=== PATIENT | female | born 1965 | race American Indian/Alaskan Native ===

== ENCOUNTER 2016-10-29 22:47 | Emergency (ER) | payer MEDICAID, OTHER ==
[2016-10-29 22:55] VITALS: BP 140/68
[2016-10-29 23:34] LABS: CHLORIDE,CL 99 mmol/L (101-111); SODIUM,NA 138 mmol/L (135-145)
[2016-10-29] MEDS ORDERED: Insulin Regular, Human 100 Units/ML 3 ML Vial IV ONE (23:49)
--- NOTE | 2016-10-30 02:05 | EDM.PDOC ---
ED HPI GENERAL MEDICAL PROBLEM - General Chief Complaint: Chest Pain Stated Complaint: CHEST PAIN, COMING BY AMBULANCE Time Seen by Provider: 10/29/16 22:50 Source of Information: Reports: Patient, EMS History Limitations: Reports: No Limitations - History of Present Illness INITIAL COMMENTS - FREE TEXT/NARRATIVE: ED with c/o left sided chest pain worse with breathing since 2119 tonight, points epigastric and left lower chest area as location of pain. Hx diabetes with "usual BS 300-400. no fever or chills, occasional cough. previous smoker. Onset: Today Treatments SUPPORT ASSISTANT: Reports: Aspirin, EKG, IV/IO Other Treatments SUPPORT ASSISTANT: 4 baby aspirin given Left Chest Pain Score (Numeric/FACES): 4 - Related Data Allergies Allergy/AdvReac Type Severity Reaction Status Date / Time cephalexin monohydrate Allergy Rash Verified 10/29/16 23:02 [From Keflex] Home Meds: Home Meds Calcium Carbonate/Vitamin D3 [Calcium 500 + Vit D 200 Caplet] 1 tab PO BID 03/24 [History] Hydrochlorothiazide [Hydrochlorothiazide] 1 tab PO BID 03/24/14 [History] Ibuprofen [Motrin] 1 tab PO Q8H PRN 03/24/14 [History] Lisinopril [Lisinopril] 40 mg PO DAILY 03/24/14 [History] glyBURIDE [Glyburide] 2 tab PO BID 03/24/14 [History] metFORMIN [Glucophage] 1 tab PO BID 03/24/14 [History] Fluticasone Propionate [Flonase] 1 spray NS DAILY 03/26/14 [History] Insulin Detemir [Levemir] 30 unit SUBCUT BID 09/16/14 [History] Docusate Sodium [Colace] 200 mg PO BID 10/29/16 [History] Famotidine 20 mg PO BID PRN 10/29/16 [History] Insulin Aspart [Novolog] 18 unit SQ BID 10/29/16 [History] Metoprolol Tartrate 12.5 mg PO DAILY 10/29/16 [History] Psyllium Husk 1 tsp PO BID 10/29/16 [History] Sodium Chloride [Deep Sea] 44 ml NS DAILY 10/29/16 [History] atorvaSTATin Calcium [Atorvastatin Calcium] 20 mg PO QPM 10/29/16 [History] Past Medical History Cardiovascular History: Reports: Hypertension Respiratory History: Reports: Other (See Below) Other Respiratory History: scarring of left lung Gastrointestinal History: Reports: None Genitourinary History: Reports: None 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 Neurological History: Reports: None Psychiatric History: Reports: Anxiety Endocrine/Metabolic History: Reports: Diabetes, Type II Hematologic History: Reports: None Immunologic History: Reports: None Oncologic (Cancer) History: Reports: None Dermatologic History: Reports: None - Infectious Disease History Infectious Disease History: Reports: None - Past Surgical History GI Surgical History: Reports: Hernia, Abdominal Female Surgical History: Reports: Section Social & Family History - Family History Family Medical History: Noncontributory - Tobacco Use Smoking Status *Q: Former Smoker Years of Tobacco use: 30 Used Tobacco, but Quit: Yes Month Tobacco Last Used: 2013 Second Hand Smoke Exposure: No - Caffeine Use Caffeine Use: Reports: Coffee - Alcohol Use Days Per Week of Alcohol Use: 0 - Recreational Drug Use Recreational Drug Use: No - Living Situation & Occupation Living situation: Reports: with Family ED ROS GENERAL - Review of Systems Review Of Systems: See Below Constitutional: Reports: No Symptoms HEENT: Reports: No Symptoms Respiratory: Reports: Shortness of Breath (at times with activity) Cardiovascular: Reports: Chest Pain, Dyspnea on Exertion. Denies: Edema, Lightheadedness, Orthopnea Endocrine: Reports: High Glucose GI/Abdominal: Reports: No Symptoms. Denies: Distension, Vomiting Musculoskeletal: Reports: No Symptoms Skin: Reports: No Symptoms Neurological: Reports: No Symptoms ED EXAM, GENERAL - Physical Exam Exam: See Below Exam Limited By: No Limitations General Appearance: Alert, No Apparent Distress, Obese Eye Exam: Bilateral Eye: EOMI, PERRL Ears: Normal External Exam Nose: Normal Inspection Throat/Mouth: Normal Inspection Head: Atraumatic, Normocephalic Neck: Normal Inspection Respiratory/Chest: No Respiratory Distress, Crackles (fine bases clear with deep inspiration and cough). No: Wheezing Cardiovascular: Normal Peripheral Pulses, Regular Rate, Rhythm GI/Abdominal: Normal Bowel Sounds, Soft, Non-Tender Back Exam: Normal Inspection Extremities: Normal Inspection Neurological: Alert, Oriented, Normal Cognition Psychiatric: Normal Affect, Normal Mood Skin Exam: Warm, Dry, Intact, Normal Color EKG INTERPRETATION Rhythm: NSR Course - Vital Signs Last Recorded V/S: Last Vital Signs Temp 97.8 F 10/29/16 22:47 Pulse 98 10/29/16 22:47 Resp 24 H 10/29/16 22:47 BP 140/68 10/29/16 22:47 Pulse Ox 92 L 10/29/16 22:47 - Orders/Labs/Meds Labs: Laboratory Tests 10/29/16 10/29/16 10/29/16 Range/Units 23:08 23:08 23:08 WBC 11.8 H (5.0-10.0) 10^3/uL RBC 4.71 (4.2-5.4) 10^6/uL Hgb 13.1 (12.0-16.0) g/dL Hct 40.2 (37.0-47.0) % MCV 85.4 (80-100) fL MCH 27.8 (27.0-34.0) pg MCHC 32.6 L (33.0-35.0) g/dL Plt Count 286 (150-450) 10^3/uL Neut % (Auto) 53.9 (42.2-75.2) % Lymph % (Auto) 30.3 (20.5-50.1) % [place] % (Auto) 8.6 H (2-8) % Eos % (Auto) 6.7 H (1.0-3.0) % Baso % (Auto) 0.5 (0.0-1.0) % D-Dimer, Quantitative < 100 (0-400) ng/mL Sodium 138 (135-145) mmol/L Potassium 4.7 (3.6-5.0) mmol/L Chloride 99 L (101-111) mmol/L Carbon Dioxide 29.0 (21.0-31.0) mmol/L Anion Gap 14.7 BUN 15 (7-18) mg/dL Creatinine 0.8 (0.6-1.3) mg/dL Est Cr Clr Drug Dosing 77.88 mL/min Estimated GFR (MDRD) > 60 BUN/Creatinine Ratio 18.75 Glucose 457 H* (74-105) mg/dL POC Glucose (70-105) mg/dl Lactic Acid (0.5-2.2) mmol/L Calcium 9.5 (8.4-10.2) mg/dl Total Bilirubin 0.8 (0.2-1.0) mg/dL AST 22 (10-42) IU/L ALT 20 (10-60) IU/L Alkaline Phosphatase 113 (42-121) IU/L CK-MB (CK-2) (0.4-4.7) ng/mL Troponin I < 0.02 (0.00-0.02) ng/ml Total Protein 7.3 (6.7-8.2) g/dl Albumin 3.7 (3.2-5.5) g/dl Globulin 3.6 Albumin/Globulin Ratio 1.03 Amylase 39 (28-100) U/L Lipase 41 (22-51) U/L Ketones Negative 10/29/16 10/29/16 10/30/16 Range/Units 23:08 23:25 00:56 WBC (5.0-10.0) 10^3/uL RBC (4.2-5.4) 10^6/uL Hgb (12.0-16.0) g/dL Hct (37.0-47.0) % MCV (80-100) fL MCH (27.0-34.0) pg MCHC (33.0-35.0) g/dL Plt Count (150-450) 10^3/uL Neut % (Auto) (42.2-75.2) % Lymph % (Auto) (20.5-50.1) % [place] % (Auto) (2-8) % Eos % (Auto) (1.0-3.0) % Baso % (Auto) (0.0-1.0) % D-Dimer, Quantitative (0-400) ng/mL Sodium (135-145) mmol/L Potassium (3.6-5.0) mmol/L Chloride (101-111) mmol/L Carbon Dioxide (21.0-31.0) mmol/L Anion Gap BUN (7-18) mg/dL Creatinine (0.6-1.3) mg/dL Est Cr Clr Drug Dosing mL/min Estimated GFR (MDRD) BUN/Creatinine Ratio Glucose (74-105) mg/dL POC Glucose 398 H (70-105) mg/dl Lactic Acid 2.2 (0.5-2.2) mmol/L Calcium (8.4-10.2) mg/dl Total Bilirubin (0.2-1.0) mg/dL AST (10-42) IU/L ALT (10-60) IU/L Alkaline Phosphatase (42-121) IU/L CK-MB (CK-2) 0.70 (0.4-4.7) ng/mL Troponin I (0.00-0.02) ng/ml Total Protein (6.7-8.2) g/dl Albumin (3.2-5.5) g/dl Globulin Albumin/Globulin Ratio Amylase (28-100) U/L Lipase (22-51) U/L Ketones Meds: Medications Discontinued Medications Generic Name Dose Route Start Last Admin Trade Name Freq PRN Reason Stop Dose Admin Insulin Human Regular 5 unit 10/29/16 23:49 10/30/16 00:24 Humulin R IV 10/29/16 23:50 5 units ONETIME ONE Administration Protocol - Radiology Interpretation Free Text/Narrative:: CXR negative - Re-Assessments/Exams Free Text/Narrative Re-Assessment/Exam: Pain resolved Breathing improved. Departure - Departure Time of Disposition: 01:59 Disposition: Home, Self-Care 01 Condition: Fair Clinical Impression: Non-cardiac chest pain, Hyperglycemia Instructions: Nonspecific Chest Pain, [id number] Referrals: PCP,Unobtain [Primary Care Provider] - Forms: ED Department Discharge Additional Instructions: follow up with primary care regarding elevated blood sugars urgent follow up if chest pain, nausea or radiation of chest pain
--- NOTE | 2016-10-30 17:26 | EKG ---
10/29/2016 - VIVIAN MENDEZ - EKG from 10/29/2016 per my reading shows sinus rhythm at the rate of 93, with no acute ST changes. [facility] /[id number]
== END 2016-10-30 02:10 | disposition home or self-care (01) ==
LOC: DL.ED 22:47
DX: R07.89 Other chest pain (principal); E11.65 Type 2 diabetes mellitus with hyperglycemia; I10 Essential (primary) hypertension; F41.9 Anxiety disorder, unspecified; Z98.890 Other specified postprocedural states; Z87.891 Personal history of nicotine dependence; Z79.4 Long term (current) use of insulin; Z79.899 Other long term (current) drug therapy; Z88.1 Allergy status to other antibiotic agents
CPT/HCPCS: 36415; 71010; 80053; 82009; 82150; 82553; 82962; 83605; 83690; 84484; 85025; 85379; 93005; 96374; 99285; J1815

== ENCOUNTER 2017-04-21 18:46 | Emergency (ER) | payer MEDICAID, OTHER ==
[2017-04-21 19:26] LABS: ANION GAP 14.1; CHLORIDE,CL 97 mmol/L (101-111); SODIUM,NA 131 mmol/L (135-145)
[2017-04-21 21:09] VITALS: BP 135/115
[2017-04-21] MEDS ORDERED: methylPREDNISolone Sodium Succinate 125 MG/2 ML SDV IM ONE (21:09)
[2017-04-21] MEDS ORDERED: Albuterol/Ipratropium 3.0-0.5 MG/3 ML Neb Soln NEB ONE (21:09)
[2017-04-21] MEDS ORDERED: Codeine/Promethazine 10-6.25 MG/5 ML Syrup 5 ML UD Cup PO ONE (21:11)
[2017-04-21] MEDS ORDERED: Azithromycin 250 MG Tab PO ONE (21:11)
--- NOTE | 2017-04-21 21:17 | EDM.PDOC ---
ED HPI GENERAL MEDICAL PROBLEM - General Chief Complaint: Chest Pain Stated Complaint: CHEST PAIN [id number] Time Seen by Provider: 04/21/17 21:13 Source of Information: Reports: Patient History Limitations: Reports: No Limitations - History of Present Illness INITIAL COMMENTS - FREE TEXT/NARRATIVE: c/o chest congestion cough and now pain Left Anterior Chest Pain Score (Numeric/FACES): 6 - Related Data Allergies Allergy/AdvReac Type Severity Reaction Status Date / Time cephalexin monohydrate Allergy Rash Verified 04/21/17 19:04 [From [employer]] Home Meds: Home Meds Calcium Carbonate/Vitamin D3 [Calcium 500 + Vit D 200 Caplet] 1 tab PO BID 03/24 [History] Hydrochlorothiazide [Hydrochlorothiazide] 1 tab PO BID 03/24/14 [History] Ibuprofen [Motrin] 1 tab PO Q8H PRN 03/24/14 [History] Lisinopril [Lisinopril] 40 mg PO DAILY 03/24/14 [History] glyBURIDE [Glyburide] 2 tab PO BID 03/24/14 [History] metFORMIN [Glucophage] 1 tab PO BID 03/24/14 [History] Fluticasone Propionate [Flonase] 1 spray NS DAILY 03/26/14 [History] Insulin Detemir [Levemir] 30 unit SUBCUT BID 09/16/14 [History] Docusate Sodium [Colace] 200 mg PO BID 10/29/16 [History] Famotidine 20 mg PO BID PRN 10/29/16 [History] Insulin Aspart [Novolog] 18 unit SQ BID 10/29/16 [History] Metoprolol Tartrate 12.5 mg PO DAILY 10/29/16 [History] Psyllium Husk 1 tsp PO BID 10/29/16 [History] Sodium Chloride [Deep Sea] 44 ml NS DAILY 10/29/16 [History] atorvaSTATin Calcium [Atorvastatin Calcium] 20 mg PO QPM 10/29/16 [History] Past Medical History Cardiovascular History: Reports: Hypertension Respiratory History: Reports: Other (See Below) Other Respiratory History: scarring of left lung Gastrointestinal History: Reports: None Genitourinary History: Reports: None 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 Neurological History: Reports: None Psychiatric History: Reports: Anxiety Endocrine/Metabolic History: Reports: Diabetes, Type II Hematologic History: Reports: None Immunologic History: Reports: None Oncologic (Cancer) History: Reports: None Dermatologic History: Reports: None - Infectious Disease History Infectious Disease History: Reports: None - Past Surgical History GI Surgical History: Reports: Hernia, Abdominal Female Surgical History: Reports: Section Social & Family History - Family History Family Medical History: Noncontributory - Tobacco Use Smoking Status *Q: Former Smoker Years of Tobacco use: 30 Used Tobacco, but Quit: No Month Tobacco Last Used: 2013 Second Hand Smoke Exposure: No - Caffeine Use Caffeine Use: Reports: Soda - Alcohol Use Days Per Week of Alcohol Use: 0 - Recreational Drug Use Recreational Drug Use: No - Living Situation & Occupation Living situation: Reports: with Family ED ROS GENERAL - Review of Systems Review Of Systems: ROS reveals no pertinent complaints other than HPI. ED EXAM, GENERAL - Physical Exam Exam: See Below Exam Limited By: No Limitations General Appearance: Alert, WD/WN, Mild Distress, Moderate Distress, Other ( episodic cough spasms) Ears: Hearing Grossly Normal Throat/Mouth: Normal Voice, No Airway Compromise Head: Atraumatic Neck: Non-Tender, Full Range of Motion Respiratory/Chest: No Respiratory Distress, No Accessory Muscle Use, Rales, Rhonchi, Wheezing. No: Decreased Breath Sounds, Retractions Cardiovascular: Regular Rate, Rhythm GI/Abdominal: Soft, Non-Tender Neurological: Alert, Oriented, Normal Cognition, Normal Gait, No Motor/Sensory Deficits Psychiatric: Flat Affect Skin Exam: Warm, Dry, Normal Color Lymphatic: No Adenopathy Course - Vital Signs Last Recorded V/S: Last Vital Signs Temp 36.6 C 04/21/17 21:09 Pulse 106 H 04/21/17 21:45 Resp 18 04/21/17 21:45 BP 135/115 H 04/21/17 21:09 Pulse Ox 96 04/21/17 21:45 - Orders/Labs/Meds Orders: Active Orders 24 hr Category Date Time Status EKG Documentation Completion [RC] STAT Care 04/21/17 18:53 Active RT Aerosol Therapy [RC] ASDIRECTED Care 04/21/17 21:09 Active Labs: Laboratory Tests 04/21/17 04/21/17 Range/Units 18:55 18:55 WBC 9.6 (5.0-10.0) 10^3/uL RBC 5.07 (4.2-5.4) 10^6/uL Hgb 13.9 (12.0-16.0) g/dL Hct 42.2 (37.0-47.0) % MCV 83.2 (80-100) fL MCH 27.4 (27.0-34.0) pg MCHC 32.9 L (33.0-35.0) g/dL Plt Count 328 (150-450) 10^3/uL Neut % (Auto) 47.7 (42.2-75.2) % Lymph % (Auto) 38.9 (20.5-50.1) % [place] % (Auto) 8.4 H (2-8) % Eos % (Auto) 4.6 H (1.0-3.0) % Baso % (Auto) 0.4 (0.0-1.0) % Sodium 131 L (135-145) mmol/L Potassium 4.1 (3.6-5.0) mmol/L Chloride 97 L (101-111) mmol/L Carbon Dioxide 24.0 (21.0-31.0) mmol/L Anion Gap 14.1 BUN 18 (7-18) mg/dL Creatinine 0.6 (0.6-1.3) mg/dL Est Cr Clr Drug Dosing 105.86 mL/min Estimated GFR (MDRD) > 60 BUN/Creatinine Ratio 30.00 Glucose 305 H (74-105) mg/dL Calcium 9.1 (8.4-10.2) mg/dl Total Bilirubin 1.1 H (0.2-1.0) mg/dL AST 30 (10-42) IU/L ALT 32 (10-60) IU/L Alkaline Phosphatase 86 (42-121) IU/L Troponin I < 0.02 (0.00-0.02) ng/ml Total Protein 7.5 (6.7-8.2) g/dl Albumin 3.8 (3.2-5.5) g/dl Globulin 3.7 Albumin/Globulin Ratio 1.03 Meds: Medications Discontinued Medications Generic Name Dose Route Start Last Admin Trade Name Freq PRN Reason Stop Dose Admin Albuterol/Ipratropium 3 ml 04/21/17 21:09 04/21/17 21:12 Duoneb 3.0-0.5 Mg/3 Ml NEB 04/21/17 21:10 3 ml ONETIME ONE Administration Azithromycin 250 mg 04/21/17 21:11 04/21/17 21:22 Zithromax PO 04/21/17 21:12 250 mg ONETIME ONE Administration Methylprednisolone Sodium Succinate 125 mg 04/21/17 21:09 04/21/17 21:21 Solu-Medrol IM 04/21/17 21:10 125 mg ONETIME ONE Administration Promethazine HCl/Codeine 5 ml 04/21/17 21:11 04/21/17 21:22 Phenergan With Codeine PO 04/21/17 21:12 5 ml ONETIME ONE Administration - Re-Assessments/Exams Free Text/Narrative Re-Assessment/Exam: 04/21/17 21:15 results discussed with pt who is feeling better s/p Rx's + duoneb Departure - Departure Time of Disposition: 21:40 Disposition: Home, Self-Care 01 Condition: Good Clinical Impression: Bronchospasm with bronchitis, acute - Discharge Information Instructions: Nonspecific Chest Pain, [id number] Forms: ED Department Discharge Additional Instructions: 1) don't sleep flat at night 2) drink lots of liquids 3) use neb 3 times daily for cough 4) follow up at clinic rx given; z-julio medrol dospak albuterol 2.5 mg solution tid prn phenergan codeine syrup qid prn x 4oz - My Orders Last 24 Hours: My Active Orders 04/21/17 18:53 EKG Documentation Completion [RC] STAT 04/21/17 21:09 RT Aerosol Therapy [RC] ASDIRECTED - Assessment/Plan Last 24 Hours: My Active Orders 04/21/17 18:53 EKG Documentation Completion [RC] STAT 04/21/17 21:09 RT Aerosol Therapy [RC] ASDIRECTED
--- NOTE | 2017-04-23 14:34 | EKG ---
04/21/2017- VIVIAN MENDEZ - FINDINGS: EKG, per my reading, shows sinus tachycardia. [facility] /[id number]
== END 2017-04-21 21:44 | disposition home or self-care (01) ==
LOC: DL.ED 18:46
DX: J20.9 Acute bronchitis, unspecified (principal); I10 Essential (primary) hypertension; Z87.891 Personal history of nicotine dependence; Z79.4 Long term (current) use of insulin; Z79.899 Other long term (current) drug therapy; Z88.1 Allergy status to other antibiotic agents
CPT/HCPCS: 36415; 71046; 80053; 84484; 85025; 93005; 94640; 96372; 99285; A9270; J2930

== ENCOUNTER 2017-05-06 13:10 | Emergency (ER) | payer MEDICAID, OTHER ==
--- NOTE | 2017-05-06 13:35 | EDM.PDOC ---
ED HPI GENERAL MEDICAL PROBLEM - General Chief Complaint: Gastrointestinal Problem Stated Complaint: CONSTIPATION Time Seen by Provider: 05/06/17 13:35 Source of Information: Reports: Patient, Old Records, RN, RN Notes Reviewed History Limitations: Reports: No Limitations - History of Present Illness INITIAL COMMENTS - FREE TEXT/NARRATIVE: Pt c/o constipation with no BM for the last 4 days. Pt states she has strained and tried to go and had only a very small amount of very hard stool with a small amount of bright red blood. Admits to mild abdominal cramping but no significant pain. Admits to nausea without vomiting. Onset: Gradual Duration: Day(s): (4) Location: Reports: Abdomen Quality: Reports: Other (cramps) Severity: Mild Improves with: Reports: None Worsens with: Reports: None Associated Symptoms: Reports: No Other Symptoms Sacral Pain Score (Numeric/FACES): 6 - Related Data Allergies Allergy/AdvReac Type Severity Reaction Status Date / Time cephalexin monohydrate Allergy Rash Verified 05/06/17 13:25 [From Keflex] Home Meds: Home Meds Calcium Carbonate/Vitamin D3 [Calcium 500 + Vit D 200 Caplet] 1 tab PO BID 03/24 [History] Hydrochlorothiazide [Hydrochlorothiazide] 1 tab PO BID 03/24/14 [History] Ibuprofen [Motrin] 1 tab PO Q8H PRN 03/24/14 [History] Lisinopril [Lisinopril] 40 mg PO DAILY 03/24/14 [History] glyBURIDE [Glyburide] 2 tab PO BID 03/24/14 [History] metFORMIN [Glucophage] 1 tab PO BID 03/24/14 [History] Fluticasone Propionate [Flonase] 1 spray NS DAILY 03/26/14 [History] Insulin Detemir [Levemir] 30 unit SUBCUT BID 09/16/14 [History] Docusate Sodium [Colace] 200 mg PO BID 10/29/16 [History] Famotidine 20 mg PO BID PRN 10/29/16 [History] Insulin Aspart [Novolog] 18 unit SQ BID 10/29/16 [History] Metoprolol Tartrate 12.5 mg PO DAILY 10/29/16 [History] Psyllium Husk 1 tsp PO BID 10/29/16 [History] atorvaSTATin Calcium [Atorvastatin Calcium] 20 mg PO QPM 10/29/16 [History] Past Medical History HEENT History: Reports: Sinusitis Cardiovascular History: Reports: Hypertension Respiratory History: Reports: Other (See Below) Other Respiratory History: scarring of left lung Gastrointestinal History: Reports: None Genitourinary History: Reports: None 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 Musculoskeletal History: Reports: None Neurological History: Reports: None Psychiatric History: Reports: Anxiety Endocrine/Metabolic History: Reports: Diabetes, Type II Hematologic History: Reports: None Immunologic History: Reports: None Oncologic (Cancer) History: Reports: None Dermatologic History: Reports: None - Infectious Disease History Infectious Disease History: Reports: None - Past Surgical History Head Surgeries/Procedures: Reports: None GI Surgical History: Reports: Hernia, Abdominal Female Surgical History: Reports: Section Social & Family History - Family History Family Medical History: Noncontributory - Tobacco Use Smoking Status *Q: Former Smoker Years of Tobacco use: 30 Used Tobacco, but Quit: No Month Tobacco Last Used: 2013 Second Hand Smoke Exposure: No - Caffeine Use Caffeine Use: Reports: Soda - Alcohol Use Days Per Week of Alcohol Use: 0 - Recreational Drug Use Recreational Drug Use: No - Living Situation & Occupation Living situation: Reports: with Family ED ROS GENERAL - Review of Systems Review Of Systems: ROS reveals no pertinent complaints other than HPI. ED EXAM, GI/ABD - Physical Exam Exam: See Below Exam Limited By: No Limitations General Appearance: Alert, WD/WN, No Apparent Distress, Obese Respiratory/Chest: No Respiratory Distress GI/Abdominal Exam: Normal Bowel Sounds, Soft, Non-Tender, No Distention, No Abnormal Bruit, Pelvis Stable, Other (benign obese abdomen) (Female) Exam: Deferred Rectal (Female) Exam: Deferred Back Exam: Normal Inspection. No: CVA Tenderness (L), CVA Tenderness (R) Extremities: Normal Inspection, Non-Tender Neurological: Alert, Oriented, Normal Cognition, No Motor/Sensory Deficits Psychiatric: Normal Mood Skin Exam: Warm, Dry, Intact, Normal Color, No Rash Course - Vital Signs Last Recorded V/S: Last Vital Signs Temp 36.6 C 05/06/17 14:47 Pulse 81 05/06/17 14:47 Resp 20 05/06/17 14:47 BP 130/73 05/06/17 14:47 Pulse Ox 97 05/06/17 14:47 - Orders/Labs/Meds Orders: Active Orders 24 hr Category Date Time Status Enema [RC] ASDIRECTED Care 05/06/17 14:22 Active UA W/MICROSCOPIC [URIN] Stat Lab 05/06/17 13:47 Uncollected Meds: Medications Discontinued Medications Generic Name Dose Route Start Last Admin Trade Name Km PRN Reason Stop Dose Admin Bisacodyl 10 mg 05/06/17 14:23 05/06/17 15:37 Dulcolax PO 05/06/17 14:24 10 mg ONETIME ONE Administration Lactulose 20 gm 05/06/17 14:23 05/06/17 15:37 Cephulac PO 05/06/17 14:24 20 gm ONETIME ONE Administration - Radiology Interpretation Free Text/Narrative:: Abdominal Xray: constipation, see Rad. report. Departure - Departure Time of Disposition: 16:09 Disposition: Home, Self-Care 01 Condition: Good Clinical Impression: Constipation Qualifiers: Constipation type: unspecified constipation type Qualified Code(s): K59.00 - Constipation, unspecified - Discharge Information Instructions: Constipation, Adult, [id number], High-Fiber Diet Forms: ED Department Discharge Additional Instructions: Drink plenty of water and/or prune juice. Follow up in clinic for recheck if not completely improved in 1 to 2 days. - My Orders Last 24 Hours: My Active Orders 05/06/17 13:47 UA W/MICROSCOPIC [URIN] Stat 05/06/17 14:22 Enema [RC] ASDIRECTED - Assessment/Plan Last 24 Hours: My Active Orders 05/06/17 13:47 UA W/MICROSCOPIC [URIN] Stat 05/06/17 14:22 Enema [RC] ASDIRECTED
--- NOTE | 2017-05-06 14:10 | CR ---
Clinical history: 51-year-old 295 pound female "constipation" and abdominal pain. Interpretation: Supine abdominal exam (3 films) confirms stool in the rectal vault and large abdomina l soft tissue pannus. Otherwise unremarkable. No sign of foreign body, abdominal soft tissue mass, pathologic calcifications or mechanical bowel ob struction. Lung bases clear.
[2017-05-06] MEDS ORDERED: Bisacodyl 5 MG Tab PO ONE (14:23)
[2017-05-06] MEDS ORDERED: Lactulose Soln 10 GM/15 ML 30 ML UD Cup PO ONE (14:23)
[2017-05-06 15:54] VITALS: BP 130/73
== END 2017-05-06 16:33 | disposition home or self-care (01) ==
LOC: DL.ED 13:10
DX: K59.00 Constipation, unspecified (principal); I10 Essential (primary) hypertension; E11.9 Type 2 diabetes mellitus without complications; Z88.1 Allergy status to other antibiotic agents; Z79.4 Long term (current) use of insulin; Z79.899 Other long term (current) drug therapy; Z87.891 Personal history of nicotine dependence
CPT/HCPCS: 74021; 81001; 99284; A9270

== ENCOUNTER 2017-05-16 05:46 | Day surgery (SDC) | payer MEDICAID, OTHER ==
[2017-05-16] MEDS ORDERED: fentaNYL 100 MCG/2 ML SDV IV ONE (05:47)
[2017-05-16] MEDS ORDERED: Midazolam 1 MG/ML 2 ML SDV IV ONE (05:47)
[2017-05-16] MEDS ORDERED: Sodium Chloride 0.9% 10 ML Syringe FLUSH PRN (06:00)
[2017-05-16] MEDS: Dextrose 5%-0.45% NaCl 1,000 ML IV SCH (06:13)
[2017-05-16] MEDS ORDERED: fentaNYL 100 MCG/2 ML SDV ONE (06:15)
[2017-05-16] MEDS ORDERED: Midazolam 1 MG/ML 2 ML SDV ONE (06:15)
[2017-05-16] MEDS: fentaNYL 100 MCG/2 ML SDV IV ONE ×2 (06:34→06:35)
[2017-05-16] MEDS: Midazolam 1 MG/ML 2 ML SDV IV ONE ×4 (06:35→06:46)
--- NOTE | 2017-05-16 08:16 | OR ---
DATE: 05/16/2017 PROCEDURE DONE: Total colonoscopy. INSTRUMENT USED: CF-H180AL Olympus video colonoscope. PREMEDICATIONS: Fentanyl 100 mcg intravenous, Versed 3 mg intravenous. Nasal O2 cannula. The procedure was done under pulse oximetry, BP recording, and data conversion operator. INDICATION: The patient with progressive constipation and rectal bleeding, unexplained, and not responsive to medical measures. Colonoscopic examination is done for detection of any polypoid lesions and removal, endoscopic hemostasis therapy if needed. DESCRIPTION OF PROCEDURE: Initial rectal exam showed external hemorrhoidal tags. Rigid anoscopy showed small internal hemorrhoids without bleeding from them. The colonoscope was passed with ease. Scattered diverticula were noted, more so in the distal left colon. The colon was found to be tortuous and redundant. The exam was a bit prolonged. The scope was passed with relative ease up to the ileocecal area, photographs were taken of the normal-appearing cecum identified by landmarks of appendiceal orifice and double-bulged ileocecal folds. No bleeding was noted from any of the visualized areas at the commencement of the examination. No stricture. No vascular ectasia. No large isolated ulcerations seen. No evidence of diffuse inflammatory bowel disease in the form of friability, contact bleeding, or ulcerations. No polyp or tumor mass identified. Probing the proximal sides of folds and flexures, using adequate distention and clearing up the stool material withdrawal of the scope was made, cecum to rectum time over 6 minutes. No bleeding was noted from any of the visualized areas at the completion of examination. IMPRESSION: 1. External and internal hemorrhoids. 2. Diverticulosis. The patient tolerated the procedure well. [facility] /[id number]
--- NOTE | 2017-05-16 09:00 | PN ---
DATE: 05/16/2017 SUBJECTIVE: Gayla Colby had chest muscle spasm kind of pain earlier in the morning that just lasted for a few seconds. Entirely asymptomatic now, did not have any associated shortness of breath. No radiation of discomfort to any area. Has had similar difficulties on and off in the past and had evaluation done in the ER recently including cardiogram as well as troponin levels. No acute changes noted. OBJECTIVE: Vital Signs: Stable. General: Anxious. Appears not to be in distress. Respiratory: Not short of breath at rest. Lungs: Clear. Heart: S1 and S2 regular. Abdomen: Obese, soft. No areas of tenderness elicited. PLAN: Chart reviewed. Recent ER visit as well as details of studies done were reviewed. We will proceed with colonoscopy as scheduled. The patient is acceptable. [facility] /[id number]
[2017-05-16 09:36] VITALS: BP 127/68
--- NOTE | 2017-05-16 09:49 | LETTER ---
05/16/2017 BRUNO [facility] [address] [place] [address] RE: GAYLA MENDEZ : 1965 Dear Angela: Ms. Gayla Mendez had colonoscopic examination done this morning and she tolerated the procedure well. I herewith send a copy of the endoscopy note and photographs for your review. Colace is discontinued and she is put on Citrucel 1 tablespoonful p.o. daily and MiraLax 17 g p.o. twice a week p.r.n., response to be noted. Thank you. Sincerely, [facility] /[id number]
== END 2017-05-16 09:05 | disposition home or self-care (01) ==
LOC: DL.ENDO 05:46
PROVIDERS: ATTEND Internal Medicine Gastroenterology
DX: K64.8 Other hemorrhoids (principal); K64.4 Residual hemorrhoidal skin tags; K57.30 Diverticulosis of large intestine without perforation or abscess without bleeding; E66.01 Morbid (severe) obesity due to excess calories; E11.9 Type 2 diabetes mellitus without complications; I10 Essential (primary) hypertension; E78.5 Hyperlipidemia, unspecified; G47.33 Obstructive sleep apnea (adult) (pediatric); F32.9 Major depressive disorder, single episode, unspecified; Z88.1 Allergy status to other antibiotic agents
CPT/HCPCS: 45378; J2250; J3010; J7042

== ENCOUNTER 2017-07-06 06:16 | Emergency (ER) | payer MEDICAID, OTHER ==
--- NOTE | 2017-07-06 06:48 | EDM.PDOC ---
<Ayesha Sanchez - Last Filed: 07/06/17 06:43> ED HPI GENERAL MEDICAL PROBLEM - General Chief Complaint: Gastrointestinal Problem Stated Complaint: CONSTIPATED, PAINS IN CHEST [id number] Time Seen by Provider: 07/06/17 06:38 Source of Information: Reports: Patient, RN, RN Notes Reviewed History Limitations: Reports: No Limitations - History of Present Illness INITIAL COMMENTS - FREE TEXT/NARRATIVE: Pt presents to the ER with c/o constipation and cough. Patient states she last had a BM on Saturday and this was difficult. She states she was started on Miralax but took only one dose. Patient states that she has also had a cough for about 2 weeks. She states she was started on a new nebulizer, but it doesn' t seem to be helping. Patient states she did not have a chest xray, as the xray machine was not working at the clinic. Onset: Gradual Treatments COLOR BLENDER: Reports: Other Medication(s) Lower Abdomen Pain Score (Numeric/FACES): 7 - Related Data Allergies Allergy/AdvReac Type Severity Reaction Status Date / Time cephalexin monohydrate Allergy Rash Verified 07/06/17 06:22 [From Keflex] Home Meds: Home Meds Calcium Carbonate/Vitamin D3 [Calcium 500 + Vit D 200 Caplet] 1 tab PO BID 03/24 [History] Hydrochlorothiazide 1 tab PO BID 03/24/14 [History] Ibuprofen [Motrin] 1 tab PO Q8H PRN 03/24/14 [History] Lisinopril 40 mg PO DAILY 03/24/14 [History] glyBURIDE [Glyburide] 2 tab PO BID 03/24/14 [History] metFORMIN [Glucophage] 1 tab PO BID 03/24/14 [History] Fluticasone Propionate [Flonase] 1 spray NS DAILY PRN 03/26/14 [History] Insulin Detemir [Levemir] 30 unit SUBCUT BID 09/16/14 [History] Docusate Sodium [Colace] 200 mg PO BID 10/29/16 [History] Famotidine 20 mg PO BID PRN 10/29/16 [History] Insulin Aspart [Novolog] 16 unit SQ BID 10/29/16 [History] Metoprolol Tartrate 12.5 mg PO DAILY 10/29/16 [History] Psyllium Husk 1 tsp PO BID 10/29/16 [History] atorvaSTATin Calcium [Atorvastatin Calcium] 20 mg PO QPM 10/29/16 [History] Albuterol Sulfate 1 vial NEB ASDIRECTED PRN 05/14/17 [History] Calcium Carb/Magnesium Cmb #10 [Juvencio-Mag] 1 tab PO BID 05/14/17 [History] Fenofibric Acid (Choline) [Fenofibric Acid] 45 mg PO DAILY 05/14/17 [History] Sennosides/Docusate Sodium [Senna S Tablet] 2 tab PO BID 05/14/17 [History] Sodium Chloride [Saline Nasal [place]] 1 spray NASBOTH ASDIRECTED PRN 05/14/17 [ History] Past Medical History HEENT History: Reports: Cataract, Impaired Vision, Sinusitis Other HEENT History: WEARS CORRECTIVE LENS Cardiovascular History: Reports: High Cholesterol, Hypertension Respiratory History: Reports: Sleep Apnea, Other (See Below) Other Respiratory History: scarring of left lung Gastrointestinal History: Reports: Chronic Constipation Genitourinary History: Reports: Urinary Incontinence, Other (See Below) Other Genitourinary History: CONSTANT LOW BACK PAIN IN AREA OF [employer] History: Reports: , Spontaneous Musculoskeletal History: Reports: Arthritis, Back Pain, Chronic Neurological History: Reports: Concussion, Neuropathy, Peripheral, TIA Psychiatric History: Reports: Anxiety Endocrine/Metabolic History: Reports: Diabetes, Type II, Obesity/BMI 30+ Hematologic History: Reports: Blood Transfusion(s) Immunologic History: Reports: None Oncologic (Cancer) History: Reports: None Dermatologic History: Reports: None - Infectious Disease History Infectious Disease History: Reports: None - Past Surgical History Head Surgeries/Procedures: Reports: None HEENT Surgical History: Reports: None Cardiovascular Surgical History: Reports: None Respiratory Surgical History: Reports: None GI Surgical History: Reports: Cholecystectomy, Colonoscopy, EGD, Hernia, Abdominal Female Surgical History: Reports: Section Endocrine Surgical History: Reports: None Neurological Surgical History: Reports: None Musculoskeletal Surgical History: Reports: None Oncologic Surgical History: Reports: None Dermatological Surgical History: Reports: None Social & Family History - Family History Family Medical History: Noncontributory - Tobacco Use Smoking Status *Q: Unknown Ever Smoked Years of Tobacco use: 30 Used Tobacco, but Quit: No Month/Year Tobacco Last Used: 2013 Second Hand Smoke Exposure: No - Caffeine Use Caffeine Use: Reports: Coffee Other Caffeine Use: 1-2 CUPS OF COFFEE DAILY - Alcohol Use Days Per Week of Alcohol Use: 0 - Recreational Drug Use Recreational Drug Use: No Drug Use in Last 12 Months: No - Living Situation & Occupation Living situation: Reports: with Family ED ROS GENERAL - Review of Systems Review Of Systems: ROS reveals no pertinent complaints other than HPI. ED EXAM, GI/ABD - Physical Exam Exam: See Below Exam Limited By: No Limitations General Appearance: Alert, WD/WN, No Apparent Distress Eyes: Bilateral: Normal Appearance, EOMI Ears: Normal External Exam, Hearing Grossly Normal Nose: Normal Inspection Throat/Mouth: Normal Inspection, Normal Voice, No Airway Compromise Head: Atraumatic, Normocephalic Neck: Normal Inspection, Supple, Non-Tender, Full Range of Motion Respiratory/Chest: Decreased Breath Sounds, Crackles (throughout), Wheezing ( expiratory) Cardiovascular: Normal Peripheral Pulses, Regular Rate, Rhythm, No Edema, No Gallop, No JVD, No Murmur, No Rub GI/Abdominal Exam: Normal Bowel Sounds, Soft, No Organomegaly, No Abnormal Bruit , No Mass, Pelvis Stable, Tender (Female) Exam: Deferred Rectal (Female) Exam: Deferred Back Exam: Normal Inspection, Full Range of Motion, NT Extremities: Normal Inspection, Normal Range of Motion, Non-Tender, Normal Capillary Refill, No Pedal Edema Neurological: Alert, Oriented, CN II-XII Intact, Normal Cognition, Normal Gait, Normal Reflexes, No Motor/Sensory Deficits Psychiatric: Normal Affect, Normal Mood Skin Exam: Warm, Dry, Intact, Normal Color, No Rash Lymphatic: No Adenopathy Course - Vital Signs Last Recorded V/S: Last Vital Signs Temp 36.7 C 07/06/17 06:29 Pulse 75 07/06/17 07:40 Resp 20 07/06/17 06:29 BP 132/69 07/06/17 06:29 Pulse Ox 95 07/06/17 06:29 - Orders/Labs/Meds Orders: Active Orders 24 hr Category Date Time Status Enema [RC] ASDIRECTED Care 07/06/17 07:47 Active RT Aerosol Therapy [RC] ASDIRECTED Care 07/06/17 07:40 Active Abdomen 2V AP Flat Upright [CR] Urgent Exams 07/06/17 06:42 Taken Chest 2V [CR] Urgent Exams 07/06/17 06:42 Taken Labs: Laboratory Tests 07/06/17 07/06/17 Range/Units 06:52 06:52 WBC 16.1 H (5.0-10.0) 10^3/uL RBC 4.51 (4.2-5.4) 10^6/uL Hgb 12.5 (12.0-16.0) g/dL Hct 38.7 (37.0-47.0) % MCV 85.8 (80-100) fL MCH 27.7 (27.0-34.0) pg MCHC 32.3 L (33.0-35.0) g/dL Plt Count 339 (150-450) 10^3/uL Neut % (Auto) 60.8 (42.2-75.2) % Lymph % (Auto) 31.7 (20.5-50.1) % [place] % (Auto) 6.0 (2-8) % Eos % (Auto) 1.1 (1.0-3.0) % Baso % (Auto) 0.4 (0.0-1.0) % Sodium 135 (135-145) mmol/L Potassium 3.5 L (3.6-5.0) mmol/L Chloride 98 L (101-111) mmol/L Carbon Dioxide 28.0 (21.0-31.0) mmol/L Anion Gap 12.5 BUN 18 (7-18) mg/dL Creatinine 0.5 L (0.6-1.3) mg/dL Est Cr Clr Drug Dosing 127.03 mL/min Estimated GFR (MDRD) > 60 BUN/Creatinine Ratio 36.00 Glucose 213 H (74-105) mg/dL Calcium 8.8 (8.4-10.2) mg/dl Total Bilirubin 0.8 (0.2-1.0) mg/dL AST 28 (10-42) IU/L ALT 25 (10-60) IU/L Alkaline Phosphatase 71 (42-121) IU/L B-Natriuretic Peptide 23 (0-100) pg/ml Total Protein 7.3 (6.7-8.2) g/dl Albumin 3.8 (3.2-5.5) g/dl Globulin 3.5 Albumin/Globulin Ratio 1.09 Meds: Medications Discontinued Medications Generic Name Dose Route Start Last Admin Trade Name Freq PRN Reason Stop Dose Admin Albuterol/Ipratropium 3 ml 07/06/17 07:39 07/06/17 07:46 Duoneb 3.0-0.5 Mg/3 Ml NEB 07/06/17 07:40 3 ml ONETIME ONE Administration Levofloxacin 500 mg 07/06/17 07:46 07/06/17 07:55 Levaquin PO 07/06/17 07:47 500 mg ONETIME ONE Administration Magnesium Citrate 300 ml 07/06/17 07:42 07/06/17 07:46 Citrate Of Magnesia PO 07/06/17 07:43 300 ml ONETIME ONE Administration Departure - Departure Disposition: Home, Self-Care 01 Clinical Impression: Chronic obstructive pulmonary disease with acute exacerbation, Bronchospasm with bronchitis, acute Constipation Qualifiers: Constipation type: unspecified constipation type Qualified Code(s): K59.00 - Constipation, unspecified - Discharge Information Instructions: Constipation, Adult Forms: ED Department Discharge Additional Instructions: Rx: Levaquin 500mg Use new steroid nebulizer exactly as prescribed by your doctor. Use your Albuterol nebulizer every four hours while awake until breathing is improved. Drink the entire one bottle of Magnesium Citrate if needed for constipation. Drink plenty of water and/or prune juice. High fiber diet, and eat prunes for a snack to help prevent constipation. Follow up in clinic next week for recheck of your breathing and constipation. Return to ER if worse at any time. - My Orders Last 24 Hours: My Active Orders 07/06/17 07:40 RT Aerosol Therapy [RC] ASDIRECTED 07/06/17 07:47 Enema [RC] ASDIRECTED - Assessment/Plan Last 24 Hours: My Active Orders 07/06/17 07:40 RT Aerosol Therapy [RC] ASDIRECTED 07/06/17 07:47 Enema [RC] ASDIRECTED <Telly Vásquez - Last Filed: 07/06/17 08:22> ED HPI GENERAL MEDICAL PROBLEM - History of Present Illness INITIAL COMMENTS - FREE TEXT/NARRATIVE: Assumed care of pt from Ayesha Sanchez CLINICAL TRIAL EDUCATOR at 0700HR shift change with xray results pending. No change to CC/HPI, ROS, Hx, or exam as documented by the CLINICAL TRIAL EDUCATOR for this encounter. Pt denies fevers, or severe abdominal pain. She required soap suds enemas at this facility in 2017. She states that she had a colonoscopy by Dr. Vásquez on 05/16/17 the found bleeding hemorrhoids and diverticulosis, but no other problems. Duration: Constant, Getting Worse, Waxing/Waning Location: Reports: Chest, Abdomen Quality: Reports: Other (crampy) Severity: Moderate Improves with: Reports: None Worsens with: Reports: None Associated Symptoms: Reports: No Other Symptoms ED EXAM, GI/ABD - Physical Exam General Appearance: Obese Respiratory/Chest: Other (reduced wheezing following DuoNeb tx in ER) GI/Abdominal Exam: Other (no focal tenderness, exam limited by severe abd. obesity). No: Guarding, Rigid, Rebound Comments: No other changes to exam as documented by Ayesha SUTTON for this encounter. Course - Radiology Interpretation Free Text/Narrative:: CXR: bronchitis but no focal infiltrate, per Rad. report. Abd xray: limited exam, see Rad. report. Departure - Departure Time of Disposition: 09:30 Condition: Fair
[2017-07-06 07:18] LABS: CHLORIDE,CL 98 mmol/L (101-111); SODIUM,NA 135 mmol/L (135-145)
[2017-07-06] MEDS ORDERED: Albuterol/Ipratropium 3.0-0.5 MG/3 ML Neb Soln NEB ONE (07:39)
[2017-07-06] MEDS ORDERED: Magnesium Citrate Solution 296 ML Bottle PO ONE (07:42)
[2017-07-06] MEDS ORDERED: Levofloxacin 500 MG Tab PO ONE (07:46)
[2017-07-06 08:20] VITALS: BP 136/78
== END 2017-07-06 08:50 | disposition home or self-care (01) ==
LOC: DL.ED 06:16
DX: J44.0 Chronic obstructive pulmonary disease with (acute) lower respiratory infection (principal); J44.1 Chronic obstructive pulmonary disease with (acute) exacerbation; J20.9 Acute bronchitis, unspecified; K59.00 Constipation, unspecified; E78.00 Pure hypercholesterolemia, unspecified; I10 Essential (primary) hypertension; E11.42 Type 2 diabetes mellitus with diabetic polyneuropathy; Z88.1 Allergy status to other antibiotic agents; Z79.899 Other long term (current) drug therapy; Z79.4 Long term (current) use of insulin
CPT/HCPCS: 36415; 71046; 74019; 80053; 83880; 85025; 94640; 99284; A9270

== ENCOUNTER 2017-07-23 21:08 | Emergency (ER) | payer MEDICAID, OTHER ==
[2017-07-23] MEDS ORDERED: Codeine/Promethazine 10-6.25 MG/5 ML Syrup 5 ML UD Cup PO ONE ×2 (21:09→23:05)
[2017-07-23 21:20] VITALS: BP 144/74
[2017-07-23] MEDS ORDERED: Albuterol/Ipratropium 3.0-0.5 MG/3 ML Neb Soln NEB ONE (21:22)
[2017-07-23] MEDS ORDERED: Albuterol 0.083% 2.5 MG/3 ML Neb Soln NEB ONE (22:31)
[2017-07-23] MEDS ORDERED: predniSONE 20 MG Tab PO ONE (22:31)
--- NOTE | 2017-07-23 23:03 | EDM.PDOC ---
ED HPI GENERAL MEDICAL PROBLEM - General Chief Complaint: Respiratory Problem Stated Complaint: [id number] Time Seen by Provider: 07/23/17 22:30 Source of Information: Reports: Patient History Limitations: Reports: No Limitations - History of Present Illness INITIAL COMMENTS - FREE TEXT/NARRATIVE: Cough for 3 weeks, worse tonight after being outside, No fever, throat sore from coughing. Has neb at home and has been using regularly. Cough non productive. Throat Pain Score (Numeric/FACES): 7 - Related Data Allergies Allergy/AdvReac Type Severity Reaction Status Date / Time cephalexin monohydrate Allergy Rash Verified 07/06/17 06:22 [From Keflex] Home Meds: Home Meds Calcium Carbonate/Vitamin D3 [Calcium 500 + Vit D 200 Caplet] 1 tab PO BID 03/24 [History] Hydrochlorothiazide 1 tab PO BID 03/24/14 [History] Ibuprofen [Motrin] 1 tab PO Q8H PRN 03/24/14 [History] Lisinopril 40 mg PO DAILY 03/24/14 [History] glyBURIDE [Glyburide] 2 tab PO BID 03/24/14 [History] metFORMIN [Glucophage] 1 tab PO BID 03/24/14 [History] Fluticasone Propionate [Flonase] 1 spray NS DAILY PRN 03/26/14 [History] Insulin Detemir [Levemir] 30 unit SUBCUT BID 09/16/14 [History] Docusate Sodium [Colace] 200 mg PO BID 10/29/16 [History] Famotidine 20 mg PO BID PRN 10/29/16 [History] Insulin Aspart [Novolog] 16 unit SQ BID 10/29/16 [History] Metoprolol Tartrate 12.5 mg PO DAILY 10/29/16 [History] Psyllium Husk 1 tsp PO BID 10/29/16 [History] atorvaSTATin Calcium [Atorvastatin Calcium] 20 mg PO QPM 10/29/16 [History] Albuterol Sulfate 1 vial NEB ASDIRECTED PRN 05/14/17 [History] Calcium Carb/Magnesium Cmb #10 [Juvencio-Mag] 1 tab PO BID 05/14/17 [History] Fenofibric Acid (Choline) [Fenofibric Acid] 45 mg PO DAILY 05/14/17 [History] Sennosides/Docusate Sodium [Senna S Tablet] 2 tab PO BID 05/14/17 [History] Sodium Chloride [Saline Nasal [place]] 1 spray NASBOTH ASDIRECTED PRN 05/14/17 [ History] Past Medical History HEENT History: Reports: Cataract, Impaired Vision, Sinusitis Other HEENT History: WEARS CORRECTIVE LENS Cardiovascular History: Reports: High Cholesterol, Hypertension Respiratory History: Reports: Sleep Apnea, Other (See Below) Other Respiratory History: scarring of left lung Gastrointestinal History: Reports: Chronic Constipation Genitourinary History: Reports: Urinary Incontinence, Other (See Below) Other Genitourinary History: CONSTANT LOW BACK PAIN IN AREA OF [employer] History: Reports: , Spontaneous Musculoskeletal History: Reports: Arthritis, Back Pain, Chronic Neurological History: Reports: Concussion, Neuropathy, Peripheral, TIA Psychiatric History: Reports: Anxiety Endocrine/Metabolic History: Reports: Diabetes, Type II, Obesity/BMI 30+ Hematologic History: Reports: Blood Transfusion(s) Immunologic History: Reports: None Oncologic (Cancer) History: Reports: None Dermatologic History: Reports: None - Infectious Disease History Infectious Disease History: Reports: None - Past Surgical History Head Surgeries/Procedures: Reports: None HEENT Surgical History: Reports: None Cardiovascular Surgical History: Reports: None Respiratory Surgical History: Reports: None GI Surgical History: Reports: Cholecystectomy, Colonoscopy, EGD, Hernia, Abdominal Female Surgical History: Reports: Section Endocrine Surgical History: Reports: None Neurological Surgical History: Reports: None Musculoskeletal Surgical History: Reports: None Oncologic Surgical History: Reports: None Dermatological Surgical History: Reports: None Social & Family History - Family History Family Medical History: Noncontributory - Tobacco Use Smoking Status *Q: Former Smoker Years of Tobacco use: 30 Used Tobacco, but Quit: Yes Month/Year Tobacco Last Used: 2014 Second Hand Smoke Exposure: No - Caffeine Use Caffeine Use: Reports: Coffee Other Caffeine Use: 1-2 CUPS OF COFFEE DAILY - Alcohol Use Days Per Week of Alcohol Use: 0 - Recreational Drug Use Recreational Drug Use: No Drug Use in Last 12 Months: No - Living Situation & Occupation Living situation: Reports: with Family ED ROS GENERAL - Review of Systems Review Of Systems: See Below Constitutional: Denies: Fever, Chills HEENT: Reports: Throat Pain Respiratory: Reports: Wheezing, Cough Cardiovascular: Reports: No Symptoms GI/Abdominal: Reports: No Symptoms : Reports: No Symptoms Musculoskeletal: Reports: No Symptoms Skin: Reports: No Symptoms Neurological: Reports: No Symptoms ED EXAM, GENERAL - Physical Exam Exam: See Below Exam Limited By: No Limitations General Appearance: Alert, Mild Distress, Obese Eye Exam: Bilateral Eye: EOMI Ears: Normal External Exam Nose: Normal Inspection Throat/Mouth: Normal Inspection, Normal Lips Head: Atraumatic Neck: Normal Inspection, Non-Tender Respiratory/Chest: No Respiratory Distress, Decreased Breath Sounds, Rhonchi ( clear with cough) Cardiovascular: Normal Peripheral Pulses, No Murmur GI/Abdominal: Normal Bowel Sounds Extremities: Normal Inspection Neurological: Alert, Oriented, Normal Cognition Psychiatric: Normal Affect Skin Exam: Warm, Dry, Intact, Normal Color Course - Vital Signs Last Recorded V/S: Last Vital Signs Temp 97.4 F 07/23/17 21:16 Pulse 106 H 07/23/17 21:16 Resp 18 07/23/17 21:16 BP 144/74 H 07/23/17 21:16 Pulse Ox 93 L 07/23/17 21:16 - Orders/Labs/Meds Orders: Active Orders 24 hr Category Date Time Status RT Aerosol Therapy [RC] ASDIRECTED Care 07/23/17 21:22 Active RT Aerosol Therapy [RC] ASDIRECTED Care 07/23/17 22:32 Active CULTURE STREP A CONFIRMATION [] Stat Lab 07/23/17 22:40 Results STREP SCRN A RAPID W CULT CONF [] Stat Lab 07/23/17 22:40 Results Meds: Medications Discontinued Medications Generic Name Dose Route Start Last Admin Trade Name Neilq PRN Reason Stop Dose Admin Albuterol 2.5 mg 07/23/17 22:31 07/23/17 22:37 Proventil Neb Soln NEB 07/23/17 22:32 2.5 mg ONETIME ONE Administration Albuterol/Ipratropium 3 ml 07/23/17 21:22 07/23/17 21:24 Duoneb 3.0-0.5 Mg/3 Ml NEB 07/23/17 21:23 3 ml ONETIME ONE Administration Prednisone 40 mg 07/23/17 22:31 07/23/17 22:37 Prednisone PO 07/23/17 22:32 40 mg ONETIME ONE Administration Promethazine HCl/Codeine 5 ml 07/23/17 23:05 07/23/17 23:34 Phenergan With Codeine PO 07/23/17 23:06 5 ml ONETIME ONE Administration Promethazine HCl/Codeine Confirm 07/23/17 23:33 07/23/17 23:42 Phenergan With Codeine Administered 07/23/17 23:34 Not Given Dose 5 ml .ROUTE .STK-MED ONE - Radiology Interpretation Free Text/Narrative:: CXR no pneumonia Departure - Departure Time of Disposition: 23:25 Disposition: Home, Self-Care 01 Condition: Good Clinical Impression: Bronchitis - Discharge Information Instructions: Asthma, Adult Referrals: Isaiah Rodriguez [Primary Care Provider] - Forms: ED Department Discharge Additional Instructions: Prednisone 20mg daily for 5 days then 10mg daily for 5 days Tesselon pearles 100mg every 8 hours as needed for cough #10 Clinic follow up on Saturday for recheck albuterol neb every 4 hours as needed Trial OTC loratidine 10mg daily if symptoms worsen when outside - My Orders Last 24 Hours: My Active Orders 07/23/17 21:22 RT Aerosol Therapy [RC] ASDIRECTED 07/23/17 22:32 RT Aerosol Therapy [RC] ASDIRECTED 07/23/17 22:40 CULTURE STREP A CONFIRMATION [RM] Stat STREP SCRN A RAPID W CULT CONF [RM] Stat - Assessment/Plan Last 24 Hours: My Active Orders 07/23/17 21:22 RT Aerosol Therapy [RC] ASDIRECTED 07/23/17 22:32 RT Aerosol Therapy [RC] ASDIRECTED 07/23/17 22:40 CULTURE STREP A CONFIRMATION [RM] Stat STREP SCRN A RAPID W CULT CONF [RM] Stat
[2017-07-23] MEDS ORDERED: Codeine/Promethazine 10-6.25 MG/5 ML Syrup 5 ML UD Cup ONE (23:33)
== END 2017-07-23 23:37 | disposition home or self-care (01) ==
LOC: DL.ED 21:08
DX: J40 Bronchitis, not specified as acute or chronic (principal); E78.00 Pure hypercholesterolemia, unspecified; I10 Essential (primary) hypertension; E11.42 Type 2 diabetes mellitus with diabetic polyneuropathy; Z79.899 Other long term (current) drug therapy; Z79.4 Long term (current) use of insulin; Z87.891 Personal history of nicotine dependence
CPT/HCPCS: 71046; 87081; 87430; 94640; 99285; A9270; J7620

== ENCOUNTER 2020-04-12 13:05 | Emergency (ER) | payer MEDICAID, OTHER ==
[2020-04-12 13:49] VITALS: BP 162/73; PULSE 107
--- NOTE | 2020-04-12 13:49 | EDM.PDOC ---
<Jose Alfredo Sarkar Salbador - Last Filed: 04/12/20 16:09> ED HPI GENERAL MEDICAL PROBLEM - General Chief Complaint: Chest Pain Stated Complaint: FELL, INSIDES POPPED, SEVERE RIGHT ABDOMINAL PAIN Time Seen by Provider: 04/12/20 13:48 Source of Information: Reports: Patient, RN History Limitations: Reports: No Limitations - History of Present Illness INITIAL COMMENTS - FREE TEXT/NARRATIVE: 54 y/o F c/o R lower rib pain and back pain in the middle of her spine after falling off a step 3 days ago. Pt reports she has been recently put on Ozempic by her family flavio and that since then she has been having blackout episodes. Pt lost her glucose meter and does not know what her blood sugars have been running. Pt states that 3 days ago she had a near syncopal episode and fell backwards off her step and onto her back. No loc. Pt got up and went about her day but has become increasingly sore in her back about t8 and R anterior lower ribs. Hx of type II diabetes. Denies fever, cough, chills, drugs, etoh, abd pn, pelvic pain, difficulty voiding, lower extremity trauma. Onset: Other (3 days ago) Duration: Day(s): Location: Reports: Chest, Back Quality: Reports: Ache, Sharp Severity: Moderate Improves with: Reports: None Worsens with: Reports: Movement Associated Symptoms: Reports: No Other Symptoms Right Chest Pain Score (Numeric/FACES): 9 - Related Data Allergies Allergy/AdvReac Type Severity Reaction Status Date / Time cephalexin monohydrate Allergy Rash Verified 04/12/20 13:36 [From Keflex] Home Meds: Home Meds Calcium Carbonate/Vitamin D3 [Calcium 500 + Vit D 200 Caplet] 1 tab PO BID 03/24/14 [History] Hydrochlorothiazide 1 tab PO BID 03/24/14 [History] Ibuprofen [Motrin] 1 tab PO Q8H PRN 03/24/14 [History] Lisinopril 40 mg PO DAILY 03/24/14 [History] glyBURIDE [Glyburide] 2 tab PO BID 03/24/14 [History] metFORMIN [Glucophage] 1 tab PO BID 03/24/14 [History] Fluticasone Propionate [Flonase] 1 spray NS DAILY PRN 03/26/14 [History] Insulin Detemir [Levemir] 30 unit SUBCUT BID 09/16/14 [History] Docusate Sodium [Colace] 200 mg PO BID 10/29/16 [History] Famotidine 20 mg PO BID PRN 10/29/16 [History] Insulin Aspart [Novolog] 16 unit SQ BID 10/29/16 [History] Metoprolol Tartrate 12.5 mg PO DAILY 10/29/16 [History] Psyllium Husk 1 tsp PO BID 10/29/16 [History] atorvaSTATin Calcium [Atorvastatin Calcium] 20 mg PO QPM 10/29/16 [History] Albuterol Sulfate 1 vial NEB ASDIRECTED PRN 05/14/17 [History] Calcium Carb/Magnesium Ox,Carb [Juvencio-Mag] 1 tab PO BID 05/14/17 [History] Fenofibric Acid (Choline) [Fenofibric Acid] 45 mg PO DAILY 05/14/17 [History] Sennosides/Docusate Sodium [Senna S Tablet] 2 tab PO BID 05/14/17 [History] Sodium Chloride [Saline Nasal [place]] 1 spray NASBOTH ASDIRECTED PRN 05/14/17 [History] Past Medical History HEENT History: Reports: Cataract, Impaired Vision, Sinusitis Other HEENT History: WEARS CORRECTIVE LENS Cardiovascular History: Reports: High Cholesterol, Hypertension Respiratory History: Reports: Sleep Apnea, Other (See Below) Other Respiratory History: scarring of left lung Gastrointestinal History: Reports: Chronic Constipation Genitourinary History: Reports: Urinary Incontinence, Other (See Below) Other Genitourinary History: CONSTANT LOW BACK PAIN 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 History: Reports: , Spontaneous Musculoskeletal History: Reports: Arthritis, Back Pain, Chronic Neurological History: Reports: Concussion, Neuropathy, Peripheral, TIA Psychiatric History: Reports: Anxiety Endocrine/Metabolic History: Reports: Diabetes, Type II, Obesity/BMI 30+ Hematologic History: Reports: Blood Transfusion(s) Immunologic History: Reports: None Oncologic (Cancer) History: Reports: None Dermatologic History: Reports: None - Infectious Disease History Infectious Disease History: Reports: None - Past Surgical History Head Surgeries/Procedures: Reports: None HEENT Surgical History: Reports: None Cardiovascular Surgical History: Reports: None Respiratory Surgical History: Reports: None GI Surgical History: Reports: Cholecystectomy, Colonoscopy, EGD, Hernia, Abdominal Female Surgical History: Reports: Section Endocrine Surgical History: Reports: None Neurological Surgical History: Reports: None Musculoskeletal Surgical History: Reports: None Oncologic Surgical History: Reports: None Dermatological Surgical History: Reports: None Social & Family History - Family History Family Medical History: No Pertinent Family History - Caffeine Use Caffeine Use: Reports: Coffee Other Caffeine Use: 1-2 CUPS OF COFFEE DAILY - Living Situation & Occupation Living situation: Reports: with Family ED ROS GENERAL - Review of Systems Review Of Systems: Comprehensive ROS is negative, except as noted in HPI. ED EXAM,LOWER BACK PAIN/INJURY - Physical Exam Exam: See Below Exam Limited By: No Limitations General Appearance: Alert, WD/WN, No Apparent Distress Eye Exam: Bilateral Eye: PERRL Ears: Normal External Exam, Normal Canal, Hearing Grossly Normal, Normal TMs Nose: Normal Inspection, Normal Mucosa, No Blood Throat/Mouth: Normal Inspection, Normal Lips, Normal Teeth, Normal Gums, Normal Oropharynx, Normal Voice, No Airway Compromise Head: Atraumatic Neck: Normal Inspection, Supple, Non-Tender, Full Range of Motion Respiratory/Chest: No Respiratory Distress, Lungs Clear, Normal Breath Sounds, No Accessory Muscle Use, Other (tender to palpation R anterior lower ribs) Cardiovascular: Regular Rate, Rhythm, No Edema GI/Abdominal: Soft, Non-Tender (Female) Exam: Deferred Rectal (Female) Exam: Deferred Back Exam: Other (point tenderness T12) Extremities: Normal Inspection, Normal Range of Motion, Non-Tender, No Pedal Edema, Normal Capillary Refill Neurological: Alert Psychiatric: Normal Affect, Normal Mood Skin Exam: Warm, Dry, Intact, Normal Color, No Rash Departure - Departure Time of Disposition: 16:09 Disposition: Home, Self-Care 01 Condition: Fair Clinical Impression: Hyperglycemia Pneumonia Qualifiers: Pneumonia type: due to unspecified organism Laterality: left Lung location: lower lobe of lung Qualified Code(s): J18.9 - Pneumonia, unspecified organism - Discharge Information *PRESCRIPTION DRUG MONITORING PROGRAM REVIEWED*: Not Applicable *COPY OF PRESCRIPTION DRUG MONITORING REPORT IN PATIENT TEX: Not Applicable Instructions: Hyperglycemia, [id number], Community-Acquired Pneumonia, Adult, [id number] Forms: ED Department Discharge Additional Instructions: RX: Zithromax Take your Zithromax prescription to treat your pneumonia for the next 6 days starting tomorrow. Follow up with your primary care physician this week fo new pneumonia diagnosis and uncontrolled blood sugars. <Telly Vásquezian - Last Filed: 04/12/20 16:18> Course - Vital Signs Last Recorded V/S: Last Vital Signs Temp 95.9 F L 04/12/20 13:48 Pulse 107 H 04/12/20 13:48 Resp 16 04/12/20 13:48 BP 162/73 H 04/12/20 13:48 Pulse Ox 95 04/12/20 13:48 - Orders/Labs/Meds Orders: Active Orders 24 hr Category Date Time Status EKG Documentation Completion [RC] STAT Care 04/12/20 13:52 Active Labs: Laboratory Tests 04/12/20 04/12/20 04/12/20 Range/Units 14:02 14:02 14:02 WBC 15.0 H (5.0-10.0) 10^3/uL RBC 5.09 (4.2-5.4) 10^6/uL Hgb 14.3 D (12.0-16.0) g/dL Hct 42.4 (37.0-47.0) % MCV 83.3 (80-100) fL MCH 28.1 (27.0-34.0) pg MCHC 33.7 (33.0-35.0) g/dL Plt Count 319 (150-450) 10^3/uL Neut % (Auto) 67.4 (42.2-75.2) % Lymph % (Auto) 23.3 (20.5-50.1) % [place] % (Auto) 6.3 (2-8) % Eos % (Auto) 2.7 (1.0-3.0) % Baso % (Auto) 0.3 (0.0-1.0) % Sodium 135 L (136-145) mmol/L Potassium 5.0 (3.5-5.1) mmol/L Chloride 96 L (98-107) mmol/L Carbon Dioxide 29 (21-32) mmol/L Anion Gap 15.0 H (7-13) mEq/L BUN 14 (7-18) mg/dL Creatinine 1.14 H (0.55-1.02) mg/dL Est Cr Clr Drug Dosing 52.81 mL/min Estimated GFR (MDRD) 50 BUN/Creatinine Ratio 12.3 (No establ ref range) Glucose 493 H* (74-99) mg/dL Calcium 9.0 (8.5-10.1) mg/dL Total Bilirubin 0.8 (0.2-1.0) mg/dL AST 20 (15-37) U/L ALT 33 (14-59) U/L Alkaline Phosphatase 145 H (46-116) U/L Troponin I < 0.017 (0.000-0.056) ng/mL Total Protein 8.0 (6.4-8.2) g/dL Albumin 3.6 (3.4-5.0) g/dL Globulin 4.4 Albumin/Globulin Ratio 0.8 Meds: Medications Discontinued Medications Generic Name Dose Route Start Last Admin Trade Name Freq PRN Reason Stop Dose Admin Azithromycin 500 mg 04/12/20 15:52 04/12/20 16:01 Zithromax PO 04/12/20 15:53 500 mg ONETIME ONE Administration Insulin Human Regular 12 unit 04/12/20 15:50 04/12/20 16:00 Humulin R SUBCUT 04/12/20 15:51 12 units ONETIME ONE Administration Sepsis Event Note (ED) - Focused Exam Vital Signs: Vital Signs Temp Pulse Resp BP Pulse Ox 04/12/20 13:48 95.9 F L 107 H 16 162/73 H 95
--- NOTE | 2020-04-12 15:33 | CR ---
EXAMINATION: Thoracic Spine 2V SEX: Female AGE: 54 years CLINICAL HISTORY: 54-year-old female injured in a fall (back pain) Interpretation: Abnormal. Mild dorsolumbar scoliosis. Signs of chronic multilevel disc disease and extensive hypertrophic spondylosis. No pathologic skeletal lesion, paraspinal soft tissue mass (hematoma), thoracic fracture/dislocation. Posterior ribs unremarkable. Normal mediastinal width but abnormal pleural reactive change blunting the left costophrenic sulcus. No pneumothorax or pneumomediastinum. CONCLUSION: Chronic multilevel disc disease and hypertrophic arthritic changes dorsal spine. Pleural reactive scarring or effusion left CP angle.
--- NOTE | 2020-04-12 15:38 | CR ---
EXAMINATION: Chest 2V SEX: Female AGE: 54 years CLINICAL HISTORY: 54-year-old obese female with back pain (fall). Comparison CXR 23 July 2017. Interpretation (PA/lateral chest): 1. Multilevel disc disease and hypertrophic arthritic changes of the spine. No rib fractures. 2. No pneumothorax or pneumomediastinum. 3. Chronic atelectasis/fibrosis or pleural parenchymal reaction left CP angle unchanged since June 2017. 4. Normal cardiac silhouette. No pulmonary vascular congestion, cephalization of flow, alveolar edema or dependent pleural effusion. 5. No lung mass or hilar/mediastinal lymphadenopathy. 6. No focal lobar infiltrate/atelectasis. CONCLUSION: No acute cardiopulmonary abnormality. Multilevel disc disease and arthritis T-spine.
[2020-04-12] MEDS ORDERED: Insulin Regular, Human 100 Units/ML 3 ML Vial SUBCUT ONE (15:50)
[2020-04-12] MEDS ORDERED: Azithromycin 250 MG Tab PO ONE (15:52)
== END 2020-04-12 16:19 | disposition home or self-care (01) ==
LOC: DL.ED 13:05
DX: E11.65 Type 2 diabetes mellitus with hyperglycemia (principal); J18.9 Pneumonia, unspecified organism; E78.00 Pure hypercholesterolemia, unspecified; I10 Essential (primary) hypertension; E11.42 Type 2 diabetes mellitus with diabetic polyneuropathy; Z86.73 Personal history of transient ischemic attack (TIA), and cerebral infarction without residual deficits; E66.9 Obesity, unspecified; Z68.42 Body mass index [BMI] 45.0-49.9, adult; Z88.1 Allergy status to other antibiotic agents; Z79.4 Long term (current) use of insulin; Z79.899 Other long term (current) drug therapy
CPT/HCPCS: 36415; 71046; 72070; 80053; 84484; 85025; 93005; 99285; A9270; J1815

== ENCOUNTER 2020-08-05 22:10 | Emergency (ER) | payer MEDICAID ==
[2020-08-05 22:50] VITALS: BP 125/64; PULSE 92
--- NOTE | 2020-08-05 22:55 | EDM.PDOC ---
ED HPI GENERAL MEDICAL PROBLEM - General Stated Complaint: BLEEDING RECTUM, UNABLE TO GO TO BATHROOM 3 DAYS Time Seen by Provider: 08/05/20 22:30 Source of Information: Reports: Patient, Old Records, RN, RN Notes Reviewed History Limitations: Reports: No Limitations - History of Present Illness INITIAL COMMENTS - FREE TEXT/NARRATIVE: Gayla is a 54 y/o female with a history of ventral hernia and DM II who presents to the ED via personal vehicle with complaints of bilateral upper quadrant abdominal pain and constipation x3 days. The patient reports a longstanding history of constipation for which she takes daily stool softeners and MiraLAX. Additionally, she states she has taken three suppositories with no results today. She characterizes her pain as a dull ache with a "pinching" sensation in her mid-abdomen. She denies fever, shaking chills, shortness of breath, palpitations, vomiting, dysuria, or hematuria. She does attest to nausea and hematochezia with her last bowel movement three days ago; she reports a history of hemorrhoids. Bilateral Upper Abdomen Pain Score (Numeric/FACES): 4 - Related Data Allergies Allergy/AdvReac Type Severity Reaction Status Date / Time cephalexin monohydrate Allergy Rash Verified 04/12/20 13:36 [From Keflex] Home Meds: Home Meds Calcium Carbonate/Vitamin D3 [Calcium 500 + Vit D 200 Caplet] 1 tab PO BID 03/24/14 [History] Hydrochlorothiazide 1 tab PO BID 03/24/14 [History] Ibuprofen [Motrin] 1 tab PO Q8H PRN 03/24/14 [History] Lisinopril 40 mg PO DAILY 03/24/14 [History] glyBURIDE [Glyburide] 2 tab PO BID 03/24/14 [History] metFORMIN [Glucophage] 1 tab PO BID 03/24/14 [History] Fluticasone Propionate [Flonase] 1 spray NS DAILY PRN 03/26/14 [History] Insulin Detemir [Levemir] 30 unit SUBCUT BID 09/16/14 [History] Docusate Sodium [Colace] 200 mg PO BID 10/29/16 [History] Famotidine 20 mg PO BID PRN 10/29/16 [History] Insulin Aspart [Novolog] 16 unit SQ BID 10/29/16 [History] Metoprolol Tartrate 12.5 mg PO DAILY 10/29/16 [History] Psyllium Husk 1 tsp PO BID 10/29/16 [History] atorvaSTATin Calcium [Atorvastatin Calcium] 20 mg PO QPM 10/29/16 [History] Albuterol Sulfate 1 vial NEB ASDIRECTED PRN 05/14/17 [History] Calcium Carb/Magnesium Ox,Carb [Juvencio-Mag] 1 tab PO BID 05/14/17 [History] Fenofibric Acid (Choline) [Fenofibric Acid] 45 mg PO DAILY 05/14/17 [History] Sennosides/Docusate Sodium [Senna S Tablet] 2 tab PO BID 05/14/17 [History] Sodium Chloride [Saline Nasal [place]] 1 spray NASBOTH ASDIRECTED PRN 05/14/17 [Hi story] Past Medical History HEENT History: Reports: Cataract, Impaired Vision, Sinusitis Other HEENT History: WEARS CORRECTIVE LENS Cardiovascular History: Reports: High Cholesterol, Hypertension Respiratory History: Reports: Sleep Apnea, Other (See Below) Other Respiratory History: scarring of left lung Gastrointestinal History: Reports: Chronic Constipation Genitourinary History: Reports: Urinary Incontinence, Other (See Below) Other Genitourinary History: CONSTANT LOW BACK PAIN IN AREA OF [employer] History: Reports: , Spontaneous Musculoskeletal History: Reports: Arthritis, Back Pain, Chronic Neurological History: Reports: Concussion, Neuropathy, Peripheral, TIA Psychiatric History: Reports: Anxiety Endocrine/Metabolic History: Reports: Diabetes, Type II, Obesity/BMI 30+ Hematologic History: Reports: Blood Transfusion(s) Immunologic History: Reports: None Oncologic (Cancer) History: Reports: None Dermatologic History: Reports: None - Infectious Disease History Infectious Disease History: Reports: None - Past Surgical History Head Surgeries/Procedures: Reports: None HEENT Surgical History: Reports: None Cardiovascular Surgical History: Reports: None Respiratory Surgical History: Reports: None GI Surgical History: Reports: Cholecystectomy, Colonoscopy, EGD, Hernia, Abdominal Female Surgical History: Reports: Section Endocrine Surgical History: Reports: None Neurological Surgical History: Reports: None Musculoskeletal Surgical History: Reports: None Oncologic Surgical History: Reports: None Dermatological Surgical History: Reports: None Social & Family History - Family History Family Medical History: No Pertinent Family History - Caffeine Use Caffeine Use: Reports: Coffee Other Caffeine Use: 1-2 CUPS OF COFFEE DAILY - Living Situation & Occupation Living situation: Reports: with Family ED ROS GENERAL - Review of Systems Review Of Systems: Comprehensive ROS is negative, except as noted in HPI. ED EXAM, GI/ABD - Physical Exam Exam: See Below Exam Limited By: No Limitations General Appearance: Alert, No Apparent Distress, Obese Eyes: Bilateral: Normal Appearance, EOMI Throat/Mouth: Normal Inspection, Normal Oropharynx, Normal Voice, No Airway Compromise Head: Atraumatic, Normocephalic Neck: Normal Inspection, Supple, Non-Tender, Full Range of Motion Respiratory/Chest: No Respiratory Distress, Lungs Clear, Normal Breath Sounds, No Accessory Muscle Use, Chest Non-Tender Cardiovascular: Normal Peripheral Pulses, Regular Rate, Rhythm, No Edema, No Gallop, No JVD, No Murmur, No Rub GI/Abdominal Exam: No Distention, No Abnormal Bruit, Pelvis Stable, Tender (To palpation of bilateral upper quadrant), Abnormal Bowel Sounds (Hyperactive), Hernia. No: Guarding, Rigid, Rebound (Female) Exam: Deferred Rectal (Female) Exam: Normal Rectal Tone, Hemorrhoids. No: Decreased Rectal To ne, Fecal Impaction, Perirectal Abscess, Rectal Fissure, Tenderness Back Exam: Normal Inspection, Full Range of Motion Extremities: Normal Inspection, Normal Range of Motion, Non-Tender, Normal Capillary Refill, No Pedal Edema Neurological: Alert, Oriented, CN II-XII Intact, Normal Cognition, Normal Gait, No Motor/Sensory Deficits Psychiatric: Normal Affect, Normal Mood Skin Exam: Warm, Dry, Intact, Normal Color, No Rash. No: Ecchymosis, Erythema, Jaundice, Mottled, Pallor, Petechiae Course - Vital Signs Last Recorded V/S: Last Vital Signs Temp 97.2 F 08/05/20 22:15 Pulse 92 08/05/20 22:15 Resp 18 08/05/20 22:15 BP 125/64 08/05/20 22:15 Pulse Ox 93 L 08/05/20 22:15 - Orders/Labs/Meds Labs: Laboratory Tests 08/05/20 08/05/20 08/05/20 Range/Units 23:00 23:00 23:00 WBC 13.7 H (5.0-10.0) 10^3/uL RBC 4.93 (4.2-5.4) 10^6/uL Hgb 13.9 (12.0-16.0) g/dL Hct 42.5 (37.0-47.0) % MCV 86.2 (80-100) fL MCH 28.2 (27.0-34.0) pg MCHC 32.7 L (33.0-35.0) g/dL Plt Count 369 (150-450) 10^3/uL Neut % (Auto) 63.1 (42.2-75.2) % Lymph % (Auto) 27.6 (20.5-50.1) % [place] % (Auto) 7.3 (2-8) % Eos % (Auto) 1.8 (1.0-3.0) % Baso % (Auto) 0.2 (0.0-1.0) % Sodium 136 (136-145) mmol/L Potassium 4.6 (3.5-5.1) mmol/L Chloride 98 (98-107) mmol/L Carbon Dioxide 31 (21-32) mmol/L Anion Gap 11.6 (7-13) mEq/L BUN 14 (7-18) mg/dL Creatinine 0.85 (0.55-1.02) mg/dL Est Cr Clr Drug Dosing 70.83 mL/min Estimated GFR (MDRD) > 60 BUN/Creatinine Ratio 16.5 (No establ ref range) Glucose 342 H (70-99) mg/dL Lactic Acid 1.6 (0.4-2.0) mmol/L Calcium 8.8 (8.5-10.1) mg/dL Total Bilirubin 0.7 (0.2-1.0) mg/dL AST 16 (15-37) U/L ALT 27 (14-59) U/L Alkaline Phosphatase 103 (46-116) U/L C-Reactive Protein 0.7 (0.0-0.9) mg/dL Total Protein 7.2 (6.4-8.2) g/dL Albumin 3.2 L (3.4-5.0) g/dL Globulin 4.0 Albumin/Globulin Ratio 0.80 Amylase (25-115) U/L Lipase (73-393) U/L Urine Color (YELLOW) Urine Appearance (CLEAR) Urine pH (5.0-9.0) Ur Specific [place] (1.005-1.030) Urine Protein (NEGATIVE) Urine Glucose (UA) (NEGATIVE) Urine Ketones (NEGATIVE) Urine Occult Blood (NEGATIVE) Urine Nitrite (NEGATIVE) Urine Bilirubin (NEGATIVE) Urine Urobilinogen (0.2-1.0) mg/dL Ur Leukocyte Esterase (NEGATIVE) 08/05/20 08/05/20 Range/Units 23:00 23:17 WBC (5.0-10.0) 10^3/uL RBC (4.2-5.4) 10^6/uL Hgb (12.0-16.0) g/dL Hct (37.0-47.0) % MCV (80-100) fL MCH (27.0-34.0) pg MCHC (33.0-35.0) g/dL Plt Count (150-450) 10^3/uL Neut % (Auto) (42.2-75.2) % Lymph % (Auto) (20.5-50.1) % [place] % (Auto) (2-8) % Eos % (Auto) (1.0-3.0) % Baso % (Auto) (0.0-1.0) % Sodium (136-145) mmol/L Potassium (3.5-5.1) mmol/L Chloride (98-107) mmol/L Carbon Dioxide (21-32) mmol/L Anion Gap (7-13) mEq/L BUN (7-18) mg/dL Creatinine (0.55-1.02) mg/dL Est Cr Clr Drug Dosing mL/min Estimated GFR (MDRD) BUN/Creatinine Ratio (No establ ref range) Glucose (70-99) mg/dL Lactic Acid (0.4-2.0) mmol/L Calcium (8.5-10.1) mg/dL Total Bilirubin (0.2-1.0) mg/dL AST (15-37) U/L ALT (14-59) U/L Alkaline Phosphatase (46-116) U/L C-Reactive Protein (0.0-0.9) mg/dL Total Protein (6.4-8.2) g/dL Albumin (3.4-5.0) g/dL Globulin Albumin/Globulin Ratio Amylase 33 (25-115) U/L Lipase 130 (73-393) U/L Urine Color Yellow (YELLOW) Urine Appearance Clear (CLEAR) Urine pH 7.0 (5.0-9.0) Ur Specific [place] 1.020 (1.005-1.030) Urine Protein Negative (NEGATIVE) Urine Glucose (UA) 500 H (NEGATIVE) Urine Ketones Negative (NEGATIVE) Urine Occult Blood Negative (NEGATIVE) Urine Nitrite Negative (NEGATIVE) Urine Bilirubin Negative (NEGATIVE) Urine Urobilinogen 0.2 (0.2-1.0) mg/dL Ur Leukocyte Esterase Negative (NEGATIVE) Meds: Medications Discontinued Medications Generic Name Dose Route Start Last Admin Trade Name Freq PRN Reason Stop Dose Admin Sodium Chloride 1,000 mls @ 999 mls/hr 08/05/20 23:17 08/05/20 23:56 Normal Saline IV 08/06/20 00:17 999 mls/hr .BOLUS ONE Administration Iopamidol 100 ml 08/05/20 23:23 08/05/20 23:24 Iopamidol 612 Mg/Ml 100 Ml Bottle IVPUSH 08/05/20 23:24 100 ml ONETIME ONE Administration Iopamidol 50 ml 08/05/20 23:30 08/05/20 23:47 Iopamidol 612 Mg/Ml 50 Ml Sdv IVPUSH 08/05/20 23:31 50 ml ONETIME ONE Administration Magnesium Hydroxide 30 ml 08/06/20 00:27 08/06/20 00:51 Magnesium Hydroxide 400 Mg/5 Ml Susp 30 Ml Cup PO 08/06/20 00:28 30 ml ONETIME ONE Administration - Radiology Interpretation Free Text/Narrative:: [facility] - [facility] Final Radiology Report Call: [phone] assistance Online chat: [email or web address] Name: GAYLA MENDEZ Age: 54Years F Date: 08/05/2020 SSN: -- : [id number] Study: CT ABDOMEN PELVIS W CONT Requesting Physician: Lili Dominguez Images: [id number] Addl Studies: Provided Clinical History: Diffuse abdominal pain with constipation Contrast: With Contrast Medium: [id number] Contrast Amount: 125 mL Contrast Method: Intravenous (IV) Page 1 of 2 PROCEDURE INFORMATION: Exam: CT Abdomen And Pelvis With Contrast Exam date and time: 08/05/2020 11:25 PM Age: 54 years old Clinical indication: Nausea and other: Wbc 13.7, HX hernia; Additional info: Diffuse abdominal pain with constipation TECHNIQUE: Imaging protocol: Computed tomography of the abdomen and pelvis with contrast. Radiation optimization: All CT scans at this facility use at least one of these dose optimization techniques: automated exposure control; mA and/or kV adjustment per patient size (includes targeted exams where dose is matched to clinical indication); or iterative reconstruction. Contrast material: [id number]; Contrast volume: 125 ml; Contrast route: INTRAVENOUS (IV); COMPARISON: CT Abdomen Pelvis wo Cont 04/19/2015 3:29 PM FINDINGS: Liver: Enlarged fatty liver. Gallbladder and bile ducts: Cholecystectomy. Pancreas: Normal. No ductal dilation. Spleen: Normal. No splenomegaly. Adrenal glands: Normal. No mass. Kidneys and ureters: Normal. No hydronephrosis. Stomach and bowel: No bowel obstruction or acute process of the bowel. Appendix: No evidence of appendicitis. Intraperitoneal space: Unremarkable. No free air. No significant fluid collection. Vasculature: Unremarkable. No abdominal aortic aneurysm. Lymph nodes: Unremarkable. No enlarged lymph nodes. Urinary bladder: Unremarkable as visualized. Reproductive: Unremarkable as visualized. Bones/joints: Healing right anterior 5th and 6th rib fractures. Moderate lumbar degenerative changes with moderate spinal canal narrowing at L4-L5. Soft tissues: Postoperative changes anterior abdominal wall. Small upper abdominal ventral hernia containing fat. IMPRESSION: No acute process Thank you for allowing us to participate in the care of your patient. Dictated and Authenticated by: Tyler Salazar MD 08/06/2020 12:22 AM Central Time ([place] & [place]) - Re-Assessments/Exams Free Text/Narrative Re-Assessment/Exam: 08/06/20 WBC chronically elevated at 13.7 with no left shift present; no evidence of anem ia. Electrolytes, kidney function, and liver function appropriate via CMP. Glucose 342; anion gap closed. Patient currently receiving bolus of IVF. UA remarkable for glucose, otherwise WNL. CT abdomen/pelvis revealed chronic, stable ventral hernia with no evidence of acute processes. Will treat constipation with milk of magnesia. Findings of examination, lab work, and imaging reviewed with patient. Discussed supportive cares for constipation as well as red flag signs and symptoms which would warrant reevaluation. Patient instructed to refrain from taking metformin for [address] contrast. Patient verbalized understanding and agreement with the plan of care. Departure - Departure Time of Disposition: 00:35 Disposition: Home, Self-Care 01 Condition: Good Clinical Impression: Ventral hernia without obstruction or gangrene Constipation Qualifiers: Constipation type: unspecified constipation type Qualified Code(s): K59.00 - Co nstipation, unspecified - Discharge Information *PRESCRIPTION DRUG MONITORING PROGRAM REVIEWED*: Not Applicable *COPY OF PRESCRIPTION DRUG MONITORING REPORT IN PATIENT TEX: Not Applicable Instructions: Constipation, Adult, [id number] Referrals: Karen Miller EXPERIMENTAL MACHINIST [Primary Care Provider] - Forms: ED Department Discharge Additional Instructions: 1.) Continue with daily stool softeners and MiraLAX; you may also take additional medications such as Milk of Magnesia or Magnesium Citrate. Ensure you are drinking plenty of water to help these medications work in your body. 2.) You may try enemas, as warranted. 3.) Continue with previously scheduled appointment with Dr. Mena; let him know your CT scan was performed as we will send him the images. Sepsis Event Note (ED) - Evaluation Sepsis Screening Result: No Definite Risk - Focused Exam Vital Signs: Vital Signs Temp Pulse Resp BP Pulse Ox 08/05/20 22:15 97.2 F 92 18 125/64 93 L
[2020-08-05] MEDS ORDERED: Sodium Chloride 0.9% 1,000 ML IV ONE (23:17)
[2020-08-05] MEDS ORDERED: Iopamidol 612 MG/ML 100 ML Bottle IVPUSH ONE (23:23)
[2020-08-05 23:26] LABS: ANION GAP 11.6 mEq/L (7-13); CHLORIDE,CL 98 mmol/L (98-107); SODIUM,NA 136 mmol/L (136-145)
[2020-08-05] MEDS ORDERED: Iopamidol 612 MG/ML 50 ML SDV IVPUSH ONE (23:30)
--- NOTE | 2020-08-06 00:22 | CT ---
PROCEDURE INFORMATION: Exam: CT Abdomen And Pelvis With Contrast Exam date and time: 08/05/2020 11:25 PM Age: 54 years old Clinical indication: Nausea and other: Wbc 13.7, HX hernia; Additional info: Diffuse abdominal pain with constipation TECHNIQUE: Imaging protocol: Computed tomography of the abdomen and pelvis with contrast. Radiation optimization: All CT scans at this facility use at least one of these dose optimization techniques: automated exposure control; mA and/or kV adjustment per patient size (includes targeted exams where dose is matched to clinical indication); or iterative reconstruction. Contrast material: [id number]; Contrast volume: 125 ml; Contrast route: INTRAVENOUS (IV); COMPARISON: CT Abdomen Pelvis wo Cont 04/19/2015 3:29 PM FINDINGS: Liver: Enlarged fatty liver. Gallbladder and bile ducts: Cholecystectomy. Pancreas: Normal. No ductal dilation. Spleen: Normal. No splenomegaly. Adrenal glands: Normal. No mass. Kidneys and ureters: Normal. No hydronephrosis. Stomach and bowel: No bowel obstruction or acute process of the bowel. Appendix: No evidence of appendicitis. Intraperitoneal space: Unremarkable. No free air. No significant fluid collection. Vasculature: Unremarkable. No abdominal aortic aneurysm. Lymph nodes: Unremarkable. No enlarged lymph nodes. Urinary bladder: Unremarkable as visualized. Reproductive: Unremarkable as visualized. Bones/joints: Healing right anterior 5th and 6th rib fractures. Moderate lumbar degenerative changes with moderate spinal canal narrowing at L4-L5. Soft tissues: Postoperative changes anterior abdominal wall. Small upper abdominal ventral hernia containing fat. IMPRESSION: No acute process
[2020-08-06] MEDS ORDERED: Magnesium Hydroxide 400 MG/5 ML Susp 30 ML Cup PO ONE (00:27)
== END 2020-08-06 00:55 | disposition home or self-care (01) ==
LOC: DL.ED 22:10
DX: K43.9 Ventral hernia without obstruction or gangrene (principal); K59.00 Constipation, unspecified; E78.00 Pure hypercholesterolemia, unspecified; I10 Essential (primary) hypertension; E11.9 Type 2 diabetes mellitus without complications; E66.9 Obesity, unspecified; Z88.1 Allergy status to other antibiotic agents; Z68.30 Body mass index [BMI] 30.0-30.9, adult; Z79.899 Other long term (current) drug therapy; Z79.4 Long term (current) use of insulin
CPT/HCPCS: 36415; 74177; 80053; 81003; 82150; 83605; 83690; 85025; 86140; 99283; 99284-25; A9270-GY; J7030; Q9967

== ENCOUNTER 2021-06-21 19:06 | Emergency (ER) | payer MEDICAID ==
[2021-06-21 19:25] VITALS: BP 127/70; PULSE 102
[2021-06-21] MEDS ORDERED: Ondansetron 4 MG/2 ML SDV IVPUSH ONE (20:00)
[2021-06-21 20:09] LABS: AMPHETAMINES,URINE NEGATIVE (NEGATIVE); BARBITURATES,URINE NEGATIVE (NEGATIVE); BENZODIAZEPINE,URINE NEGATIVE (NEGATIVE); MDMA (ECSTASY), URINE NEGATIVE (NEGATIVE); METHADONE,URINE NEGATIVE (NEGATIVE); METHAMPHETAMINES,URINE NEGATIVE (NEGATIVE); OPIATES,URINE NEGATIVE (NEGATIVE); OXYCODONE,URINE NEGATIVE (NEGATIVE); PHENCYCLIDINE,URINE NEGATIVE (NEGATIVE); TCA,URINE NEGATIVE (NEGATIVE)
[2021-06-21 20:21] LABS: ANION GAP 14.9 mEq/L (7-13); CHLORIDE,CL 100 mmol/L (98-107); SODIUM,NA 139 mmol/L (136-145)
[2021-06-21 20:27] LABS: ACETAMINOPHEN 0 ug/mL (10-30 (Therapeutic))
[2021-06-21] MEDS ORDERED: Iopamidol 612 MG/ML 100 ML Bottle IVPUSH ONE (20:48)
== END 2021-06-21 23:38 | disposition home or self-care (01) ==
LOC: DL.ED 19:06
DX: K59.00 Constipation, unspecified (principal); E78.00 Pure hypercholesterolemia, unspecified; I10 Essential (primary) hypertension; E66.9 Obesity, unspecified; Z68.41 Body mass index [BMI] 40.0-44.9, adult; Z86.73 Personal history of transient ischemic attack (TIA), and cerebral infarction without residual deficits; Z88.1 Allergy status to other antibiotic agents; Z79.899 Other long term (current) drug therapy; Z87.891 Personal history of nicotine dependence
CPT/HCPCS: 36415; 74177; 80053; 80143; 80305; 80307; 81003; 81025; 82009; 82150; 83605; 83690; 83735; 85025; 87040; 96374; 99284; J2405; Q9967

== ENCOUNTER 2022-09-12 09:14 | Day surgery (SDC) | payer MEDICAID ==
[2022-09-12] MEDS ORDERED: Acetaminophen/Codeine 300-30 MG Tab PO PRN (10:15)
[2022-09-12] MEDS ORDERED: Proparacaine 0.5% Ophth Soln 15 ML Bottle EYELF ONE ×2 (10:15→10:40)
[2022-09-12] MEDS ORDERED: Ondansetron 4 MG/2 ML SDV IVPUSH PRN (10:15)
[2022-09-12] MEDS ORDERED: Povidone-Iodine 5% Sterile Ophth Soln 30 ML Bottle EYELF ONE ×2 (10:15→10:41)
[2022-09-12] MEDS ORDERED: Acetaminophen 325 MG Tab PO PRN (10:15)
[2022-09-12] MEDS ORDERED: Tropicamide 1% Ophth Soln 15 ML Bottle EYELF ONE (10:15)
[2022-09-12] MEDS ORDERED: Moxifloxacin 0.5% Ophth Soln 3 ML Bottle EYELF ONE (10:15)
[2022-09-12] MEDS ORDERED: Sodium Chloride 0.9% 10 ML Syringe FLUSH PRN (10:15)
[2022-09-12] MEDS ORDERED: Cataract Ophth Solution EYELF ONE (10:15)
[2022-09-12] MEDS ORDERED: Timolol Maleate 0.5% Ophth Soln 5 ML Bottle EYELF ONE (10:15)
[2022-09-12] MEDS ORDERED: Phenylephrine 10% Ophth Soln 5 ML Bot EYELF PRN (10:15)
[2022-09-12] MEDS ORDERED: Apraclonidine 0.5% Ophth Soln 5 ML Bot EYELF ONE (10:41)
[2022-09-12] MEDS ORDERED: Dexamethasone/Neomycin/Polymyxin B Ophth Oint 3.5 GM Tube EYELF ONE (10:42)
[2022-09-12] MEDS ORDERED: Lidocaine 1% 30 ML SDV ONE (10:42)
[2022-09-12] MEDS ORDERED: Diclofenac Sodium 0.1% Ophth Soln 5 ML Bottle EYELF ONE (10:42)
[2022-09-12] MEDS ORDERED: Balanced Salt Solution Ophth Irrig 500 ML Bottle IOCULAR ONE (10:43)
[2022-09-12] MEDS ORDERED: Vancomycin 500 MG SDV EYELF ONE (10:43)
[2022-09-12] MEDS ORDERED: Chondroitin Sulfate/Hyaluronate Sodium Ophth Inj 0.75 ML Syringe EYELF ONE (10:43)
[2022-09-12 12:58] VITALS: BP 156/78; PULSE 72
== END 2022-09-12 11:45 | disposition home or self-care (01) ==
LOC: DL.SDS 09:14
PROVIDERS: ATTEND Ophthalmology
DX: E11.36 Type 2 diabetes mellitus with diabetic cataract (principal); E11.42 Type 2 diabetes mellitus with diabetic polyneuropathy; H25.812 Combined forms of age-related cataract, left eye; H52.03 Hypermetropia, bilateral; H52.4 Presbyopia; H01.006 Unspecified blepharitis left eye, unspecified eyelid; H01.003 Unspecified blepharitis right eye, unspecified eyelid; I10 Essential (primary) hypertension; E66.9 Obesity, unspecified; E78.00 Pure hypercholesterolemia, unspecified; K21.9 Gastro-esophageal reflux disease without esophagitis; F32.A Depression, unspecified; E55.9 Vitamin D deficiency, unspecified; G47.33 Obstructive sleep apnea (adult) (pediatric); Z68.41 Body mass index [BMI] 40.0-44.9, adult; Z79.84 Long term (current) use of oral hypoglycemic drugs; Z79.899 Other long term (current) drug therapy; Z79.4 Long term (current) use of insulin; Z88.1 Allergy status to other antibiotic agents; Z88.6 Allergy status to analgesic agent; Z87.891 Personal history of nicotine dependence; Z98.890 Other specified postprocedural states; Z90.49 Acquired absence of other specified parts of digestive tract
CPT/HCPCS: 00142; A9270-GY; J3370; J3490; V2632

== ENCOUNTER 2022-09-26 09:16 | Day surgery (SDC) | payer MEDICAID ==
[2022-09-26] MEDS ORDERED: Ondansetron 4 MG/2 ML SDV IVPUSH PRN (09:45)
[2022-09-26] MEDS ORDERED: Proparacaine 0.5% Ophth Soln 15 ML Bottle EYERT ONE ×2 (09:45→10:30)
[2022-09-26] MEDS ORDERED: Povidone-Iodine 5% Sterile Ophth Soln 30 ML Bottle EYERT ONE ×2 (09:45→10:30)
[2022-09-26] MEDS ORDERED: Moxifloxacin 0.5% Ophth Soln 3 ML Bottle EYERT ONE (09:45)
[2022-09-26] MEDS ORDERED: Cataract Ophth Solution EYERT ONE (09:45)
[2022-09-26] MEDS ORDERED: Timolol Maleate 0.5% Ophth Soln 5 ML Bottle EYERT ONE (09:45)
[2022-09-26] MEDS ORDERED: Phenylephrine 10% Ophth Soln 5 ML Bot EYERT PRN (09:45)
[2022-09-26] MEDS ORDERED: Tropicamide 1% Ophth Soln 15 ML Bottle EYERT ONE (09:45)
[2022-09-26] MEDS ORDERED: Acetaminophen/Codeine 300-30 MG Tab PO PRN (09:45)
[2022-09-26] MEDS ORDERED: Acetaminophen 325 MG Tab PO PRN (09:45)
[2022-09-26] MEDS ORDERED: Sodium Chloride 0.9% 10 ML Syringe FLUSH PRN (09:45)
[2022-09-26] MEDS ORDERED: Lidocaine 1% 30 ML SDV ONE (10:35)
[2022-09-26] MEDS ORDERED: Balanced Salt Solution Ophth Irrig 500 ML Bottle IOCULAR ONE (10:35)
[2022-09-26] MEDS ORDERED: Chondroitin Sulfate/Hyaluronate Sodium Ophth Inj 0.75 ML Syringe EYERT ONE (10:36)
[2022-09-26] MEDS ORDERED: Vancomycin 500 MG SDV EYERT ONE (10:36)
[2022-09-26] MEDS ORDERED: Apraclonidine 0.5% Ophth Soln 5 ML Bot EYERT ONE (10:37)
[2022-09-26] MEDS ORDERED: Diclofenac Sodium 0.1% Ophth Soln 5 ML Bottle EYERT ONE (10:37)
[2022-09-26] MEDS ORDERED: Dexamethasone/Neomycin/Polymyxin B Ophth Oint 3.5 GM Tube EYERT ONE (10:38)
[2022-09-26 11:31] VITALS: BP 112/65; PULSE 79
== END 2022-09-26 11:35 | disposition home or self-care (01) ==
LOC: DL.SDS 09:16
PROVIDERS: ATTEND Ophthalmology
DX: E11.36 Type 2 diabetes mellitus with diabetic cataract (principal); H25.811 Combined forms of age-related cataract, right eye; K21.9 Gastro-esophageal reflux disease without esophagitis; I10 Essential (primary) hypertension; E78.5 Hyperlipidemia, unspecified; K43.9 Ventral hernia without obstruction or gangrene; F32.A Depression, unspecified; J44.9 Chronic obstructive pulmonary disease, unspecified; E55.9 Vitamin D deficiency, unspecified; E11.40 Type 2 diabetes mellitus with diabetic neuropathy, unspecified; E66.9 Obesity, unspecified; Z79.84 Long term (current) use of oral hypoglycemic drugs; Z79.899 Other long term (current) drug therapy; Z91.040 Latex allergy status; Z88.8 Allergy status to other drugs, medicaments and biological substances
CPT/HCPCS: 66984; 82947; A9270; J3370; V2632; J3490

== ENCOUNTER 2022-10-24 23:11 | Emergency (ER) | payer MEDICAID ==
[2022-10-24 23:25] VITALS: BP 110/57; PULSE 74
[2022-10-24] MEDS ORDERED: Sodium Chloride 0.9% 10 ML Syringe FLUSH PRN (23:47)
[2022-10-24] MEDS ORDERED: Ketorolac 30 MG/ML SDV IVPUSH ONE (23:51)
[2022-10-25 00:06] LABS: BASOPHILS PERCENT AUTO 0.4 % (0.0-1.0); HEMATOCRIT 39.4 % (37.0-47.0); HEMOGLOBIN 13.1 g/dL (12.0-16.0); MEAN CORPUSCULAR HEMOGLOBIN 28.2 pg (27.0-34.0); MEAN CORPUSCULAR HGB CONC 33.2 g/dL (33.0-35.0); MEAN CORPUSCULAR VOLUME 84.7 fL (80-100); MONOCYTES PERCENT AUTO 8.9 % (2-8); NEUTROPHILS PERCENT AUTO 56.7 % (42.2-75.2); PLATELET COUNT,PLT 359 10^3/uL (150-450); RED BLOOD CELL COUNT 4.65 10^6/uL (4.2-5.4); WHITE BLOOD CELL COUNT,WBC 12.3 10^3/uL (5.0-10.0)
[2022-10-25 00:21] LABS: A/G RATIO 0.9; ALBUMIN 3.5 g/dL (3.4-5.0); ANION GAP 14.1 mEq/L (7-13); BILIRUBIN TOTAL 0.6 mg/dL (0.2-1.0); BUN/CREATININE RATIO 16.7 (No establ ref range); CALCIUM 9.4 mg/dL (8.5-10.1); CREATININE 1.08 mg/dL (0.55-1.02); EST CRCL DRUG DOSING (CG) 53.8 mL/min; POTASSIUM,K 4.1 mmol/L (3.5-5.1); PROTEIN TOTAL,TP 7.5 g/dL (6.4-8.2)
[2022-10-25 01:26] LABS: APPEARANCE,URINE CLEAR (CLEAR); BILIRUBIN,URINE NEGATIVE (NEGATIVE); COLOR,URINE YELLOW (YELLOW); GLUCOSE,URINE NEGATIVE (NEGATIVE); KETONES,URINE TRACE (NEGATIVE); LEUKOCYTE ESTERASE,URINE TRACE (NEGATIVE); NITRITE,URINE NEGATIVE (NEGATIVE); OCCULT BLOOD,URINE NEGATIVE (NEGATIVE); PROTEIN,URINE TRACE (NEGATIVE); UROBILINOGEN,URINE 0.2 mg/dL (0.2-1.0)
[2022-10-25 01:37] LABS: AMORPHOUS SEDIMENT,URINE MODERATE /HPF (NOT SEEN); BACTERIA,URINE MODERATE /HPF (0-FEW/HPF); EPITHELIAL CELLS,URINE MODERATE /HPF (NOT SEEN); HYALINE CASTS,URINE MODERATE; MUCUS,URINE MODERATE /LPF (NOT SEEN); RBC,URINE 0-5 /HPF (0-5); WBC,URINE 0-5 /HPF (0-5/HPF)
== END 2022-10-25 02:33 | disposition home or self-care (01) ==
LOC: DL.ED 23:11
DX: R10.30 Lower abdominal pain, unspecified (principal); E78.00 Pure hypercholesterolemia, unspecified; I10 Essential (primary) hypertension; E11.9 Type 2 diabetes mellitus without complications; J45.909 Unspecified asthma, uncomplicated; E66.9 Obesity, unspecified; Z68.41 Body mass index [BMI] 40.0-44.9, adult; Z88.1 Allergy status to other antibiotic agents; Z79.899 Other long term (current) drug therapy; Z87.891 Personal history of nicotine dependence; Z79.4 Long term (current) use of insulin
CPT/HCPCS: 36415; 74176; 80053; 81001; 83690; 85025; 96374; 99284; J1885; J3490

== ENCOUNTER 2022-12-24 20:42 | Emergency (ER) | payer MEDICAID ==
[2022-12-24] MEDS ORDERED: Sodium Chloride 0.9% 10 ML Syringe FLUSH PRN (21:01)
[2022-12-24 21:16] VITALS: BP 138/71; PULSE 84
[2022-12-24 21:16] LABS: BASOPHILS PERCENT AUTO 0.2 % (0.0-1.0); EOSINOPHILS PERCENT AUTO 1.8 % (1.0-3.0); HEMATOCRIT 40.9 % (37.0-47.0); HEMOGLOBIN 13.4 g/dL (12.0-16.0); LYMPHOCYTES PERCENT AUTO 36.6 % (20.5-50.1); MEAN CORPUSCULAR HEMOGLOBIN 28.4 pg (27.0-34.0); MEAN CORPUSCULAR HGB CONC 32.8 g/dL (33.0-35.0); MEAN CORPUSCULAR VOLUME 86.7 fL (80-100); NEUTROPHILS PERCENT AUTO 53.4 % (42.2-75.2); PLATELET COUNT,PLT 361 10^3/uL (150-450); RED BLOOD CELL COUNT 4.72 10^6/uL (4.2-5.4); WHITE BLOOD CELL COUNT,WBC 12.8 10^3/uL (5.0-10.0)
[2022-12-24 21:37] LABS: A/G RATIO 0.8; ALBUMIN 3.4 g/dL (3.4-5.0); BILIRUBIN TOTAL 0.6 mg/dL (0.2-1.0); CALCIUM 8.9 mg/dL (8.5-10.1); CREATININE 0.86 mg/dL (0.55-1.02); EST CRCL DRUG DOSING (CG) 67.56 mL/min; PROTEIN TOTAL,TP 7.5 g/dL (6.4-8.2)
[2022-12-24 22:34] LABS: APPEARANCE,URINE CLEAR (CLEAR); BILIRUBIN,URINE NEGATIVE (NEGATIVE); COLOR,URINE YELLOW (YELLOW); GLUCOSE,URINE >=1000 (NEGATIVE); KETONES,URINE NEGATIVE (NEGATIVE); LEUKOCYTE ESTERASE,URINE NEGATIVE (NEGATIVE); NITRITE,URINE NEGATIVE (NEGATIVE); OCCULT BLOOD,URINE NEGATIVE (NEGATIVE); PH,URINE 6.5 (5.0-9.0); PROTEIN,URINE NEGATIVE (NEGATIVE); UROBILINOGEN,URINE 0.2 mg/dL (0.2-1.0)
[2022-12-24] MEDS ORDERED: Ketorolac 30 MG/ML SDV IVPUSH ONE (22:41)
[2022-12-24] MEDS ORDERED: Orphenadrine 60 MG/2 ML Inj IM ONE (22:41)
== END 2022-12-24 23:12 | disposition home or self-care (01) ==
LOC: DL.ED 20:42
DX: M54.50 Low back pain, unspecified (principal); I10 Essential (primary) hypertension; Z86.73 Personal history of transient ischemic attack (TIA), and cerebral infarction without residual deficits; E11.42 Type 2 diabetes mellitus with diabetic polyneuropathy; E66.9 Obesity, unspecified; Z88.1 Allergy status to other antibiotic agents; Z79.899 Other long term (current) drug therapy; Z79.4 Long term (current) use of insulin; Z79.84 Long term (current) use of oral hypoglycemic drugs; E78.00 Pure hypercholesterolemia, unspecified; Z86.16 Personal history of COVID-19; Z68.41 Body mass index [BMI] 40.0-44.9, adult
CPT/HCPCS: 36415; 80053; 81003; 85025; 96372; 96374; 99283; 99283-25; J1885; J2360; J3490

== ENCOUNTER 2023-02-08 13:32 | Emergency (ER) | payer MEDICAID ==
[2023-02-08 13:48] VITALS: BP 144/84; PULSE 101
[2023-02-08] MEDS ORDERED: Bisacodyl 5 MG Tab PO ONE (14:47)
[2023-02-08] MEDS ORDERED: Lactulose Soln 10 GM/15 ML 30 ML UD Cup PO ONE (14:48)
[2023-02-08] MEDS ORDERED: Polyethylene Glycol 3350 Powder 17 GM Packet PO SCH (17:45)
[2023-02-08] MEDS: Ondansetron 4 MG/2 ML SDV IV ONE ×2 (18:32→18:44)
== END 2023-02-08 20:35 | disposition home or self-care (01) ==
LOC: DL.ED 13:32
DX: K59.00 Constipation, unspecified (principal); I10 Essential (primary) hypertension; E11.9 Type 2 diabetes mellitus without complications; E78.00 Pure hypercholesterolemia, unspecified; E66.9 Obesity, unspecified; Z68.41 Body mass index [BMI] 40.0-44.9, adult; Z79.82 Long term (current) use of aspirin; Z79.84 Long term (current) use of oral hypoglycemic drugs; Z79.899 Other long term (current) drug therapy; Z88.8 Allergy status to other drugs, medicaments and biological substances; Z90.49 Acquired absence of other specified parts of digestive tract; Z86.16 Personal history of COVID-19; Z87.891 Personal history of nicotine dependence
CPT/HCPCS: 74019; 96374; 99283; 99284-25; A9270-GY; J2405

== ENCOUNTER 2023-02-28 19:39 | Emergency (ER) | payer MEDICAID ==
[2023-02-28] MEDS ORDERED: Metoclopramide 10 MG Tab PO ONE (20:04)
[2023-02-28] MEDS ORDERED: Lactulose Soln 10 GM/15 ML 30 ML UD Cup PO ONE (20:04)
[2023-02-28 20:06] VITALS: BP 133/81; PULSE 96
== END 2023-02-28 20:11 | disposition home or self-care (01) ==
LOC: DL.ED 19:39
DX: K59.00 Constipation, unspecified (principal); I10 Essential (primary) hypertension; E78.00 Pure hypercholesterolemia, unspecified; E11.40 Type 2 diabetes mellitus with diabetic neuropathy, unspecified; E66.9 Obesity, unspecified; Z68.39 Body mass index [BMI] 39.0-39.9, adult; Z86.16 Personal history of COVID-19; Z79.84 Long term (current) use of oral hypoglycemic drugs; Z79.4 Long term (current) use of insulin; Z88.1 Allergy status to other antibiotic agents; Z79.899 Other long term (current) drug therapy; M19.90 Unspecified osteoarthritis, unspecified site; Z79.02 Long term (current) use of antithrombotics/antiplatelets
CPT/HCPCS: 99283; A9270-GY

== ENCOUNTER 2023-04-08 16:22 | Emergency (ER) | payer MEDICAID ==
[2023-04-08 16:48] VITALS: BP 138/79; PULSE 76
[2023-04-08] MEDS ORDERED: Sodium Chloride 0.9% 10 ML Syringe FLUSH PRN (16:54)
[2023-04-08] MEDS ORDERED: Sodium Chloride 0.9% 1,000 ML IV ONE ×2 (16:55→17:44)
[2023-04-08] MEDS ORDERED: 50% Dextrose in Water 50 ML Syringe IVPUSH PRN (16:56)
[2023-04-08] MEDS ORDERED: Glucagon,Human Recombinant 1 MG Vial IM PRN (16:56)
[2023-04-08] MEDS ORDERED: Insulin Regular, Human 100 Units/ML 3 ML Vial SUBCUT ONE (16:56)
[2023-04-08] MEDS ORDERED: Insulin Glarg,Human.Rec.Analog 100 Unit/ML 10 ML Vial SUBCUT ONE (16:57)
[2023-04-08 17:08] LABS: BASOPHILS PERCENT AUTO 0.5 % (0.0-1.0); EOSINOPHILS PERCENT AUTO 2.3 % (1.0-3.0); HEMATOCRIT 41.1 % (37.0-47.0); HEMOGLOBIN 13.6 g/dL (12.0-16.0); LYMPHOCYTES PERCENT AUTO 30.2 % (20.5-50.1); MEAN CORPUSCULAR HEMOGLOBIN 28.2 pg (27.0-34.0); MEAN CORPUSCULAR HGB CONC 33.1 g/dL (33.0-35.0); MEAN CORPUSCULAR VOLUME 85.3 fL (80-100); MONOCYTES PERCENT AUTO 6.6 % (2-8); NEUTROPHILS PERCENT AUTO 60.4 % (42.2-75.2); PLATELET COUNT,PLT 283 10^3/uL (150-450); RED BLOOD CELL COUNT 4.82 10^6/uL (4.2-5.4); WHITE BLOOD CELL COUNT,WBC 12.1 10^3/uL (5.0-10.0)
[2023-04-08 17:27] LABS: ALANINE AMINOTRANSFERASE,ALT 13 U/L (14-59); ALBUMIN 3.1 g/dL (3.4-5.0); ALKALINE PHOSPHATASE 155 U/L (46-116); ANION GAP 14.1 mEq/L (7-13); ASPARTATE AMNIOTRANSFERASE,AST 9 U/L (15-37); BILIRUBIN TOTAL 0.7 mg/dL (0.2-1.0); BLOOD UREA NITROGEN,BUN 11 mg/dL (7-18); BUN/CREATININE RATIO 14.7 (No establ ref range); CALCIUM 8.9 mg/dL (8.5-10.1); CARBON DIOXIDE,CO2 26 mmol/L (21-32); CHLORIDE,CL 95 mmol/L (98-107); CREATININE 0.75 mg/dL (0.55-1.02); EST CRCL DRUG DOSING (CG) 77.47 mL/min; POTASSIUM,K 4.1 mmol/L (3.5-5.1); PROTEIN TOTAL,TP 7.2 g/dL (6.4-8.2); SODIUM,NA 131 mmol/L (136-145)
[2023-04-08 17:29] LABS: A/G RATIO 0.76; ESTIMATED GFR 93 mL/min (>=60); GLUCOSE RANDOM 478 mg/dL (70-99)
[2023-04-08 17:32] LABS: KETONES,BLOOD SMALL-20 mg/dL
[2023-04-08 17:34] LABS: APPEARANCE,URINE CLEAR (CLEAR); BILIRUBIN,URINE NEGATIVE (NEGATIVE); COLOR,URINE YELLOW (YELLOW); GLUCOSE,URINE >=1000 (NEGATIVE); KETONES,URINE TRACE (NEGATIVE); LEUKOCYTE ESTERASE,URINE NEGATIVE (NEGATIVE); NITRITE,URINE NEGATIVE (NEGATIVE); OCCULT BLOOD,URINE NEGATIVE (NEGATIVE); PH,URINE 5.5 (5.0-9.0); PROTEIN,URINE NEGATIVE (NEGATIVE); UROBILINOGEN,URINE 0.2 mg/dL (0.2-1.0)
== END 2023-04-08 18:26 | disposition home or self-care (01) ==
LOC: DL.ED 16:22
DX: E11.65 Type 2 diabetes mellitus with hyperglycemia (principal); I10 Essential (primary) hypertension; E78.00 Pure hypercholesterolemia, unspecified; J45.909 Unspecified asthma, uncomplicated; E11.40 Type 2 diabetes mellitus with diabetic neuropathy, unspecified; E66.9 Obesity, unspecified; Z86.16 Personal history of COVID-19; Z90.49 Acquired absence of other specified parts of digestive tract; Z79.82 Long term (current) use of aspirin; Z79.899 Other long term (current) drug therapy; Z88.1 Allergy status to other antibiotic agents; Z68.37 Body mass index [BMI] 37.0-37.9, adult
CPT/HCPCS: 36415; 80053; 81003; 82009; 82947; 85025; 96360; 99283; 99284; J1815; J7030

== ENCOUNTER 2023-11-22 18:36 | Emergency (ER) | payer MEDICAID ==
[2023-11-22 18:57] VITALS: BP 141/77; PULSE 70
[2023-11-22 19:10] LABS: BASOPHILS PERCENT AUTO 0.4 % (0.0-1.0); EOSINOPHILS PERCENT AUTO 1.9 % (1.0-3.0); HEMATOCRIT 37.4 % (37.0-47.0); HEMOGLOBIN 12.2 g/dL (12.0-16.0); LYMPHOCYTES PERCENT AUTO 35.2 % (20.5-50.1); MEAN CORPUSCULAR HEMOGLOBIN 28.2 pg (27.0-34.0); MEAN CORPUSCULAR HGB CONC 32.6 g/dL (33.0-35.0); MEAN CORPUSCULAR VOLUME 86.4 fL (80-100); MONOCYTES PERCENT AUTO 8.6 % (2-8); NEUTROPHILS PERCENT AUTO 53.9 % (42.2-75.2); PLATELET COUNT,PLT 285 10^3/uL (150-450); RED BLOOD CELL COUNT 4.33 10^6/uL (4.2-5.4); WHITE BLOOD CELL COUNT,WBC 9.7 10^3/uL (5.0-10.0)
[2023-11-22] MEDS: Sodium Chloride 0.9% 1,000 ML IV SCH ×2 (19:13→20:14)
[2023-11-22] MEDS: Morphine 4 MG/ML Syringe IVPUSH ONE (19:14)
[2023-11-22] MEDS: Ondansetron 4 MG/2 ML SDV IVPUSH ONE (19:14)
[2023-11-22] MEDS: Iopamidol 612 MG/ML 100 ML Bottle IVPUSH ONE (19:15)
[2023-11-22 19:33] LABS: ALBUMIN 3.1 g/dL (3.4-5.0); ANION GAP 10.5 mEq/L (7-13); BILIRUBIN TOTAL 0.6 mg/dL (0.2-1.0); BUN/CREATININE RATIO 18.5 (No establ ref range); CALCIUM 8.9 mg/dL (8.5-10.1); CREATININE 0.81 mg/dL (0.55-1.02); EST CRCL DRUG DOSING (CG) 70.87 mL/min; POTASSIUM,K 4.5 mmol/L (3.5-5.1); PROTEIN TOTAL,TP 6.8 g/dL (6.4-8.2)
[2023-11-22 19:36] LABS: A/G RATIO 0.84
[2023-11-22] MEDS ORDERED: Glucagon,Human Recombinant 1 MG Vial IM PRN (19:52)
[2023-11-22] MEDS ORDERED: 50% Dextrose in Water 50 ML Syringe IVPUSH PRN (19:52)
[2023-11-22] MEDS: Ketorolac 30 MG/ML SDV IVPUSH ONE (20:23)
[2023-11-22] MEDS: Insulin Regular, Human 100 Units/ML 3 ML Vial IV ONE (20:24)
[2023-11-22] MEDS: Ampicillin/Sulbactam Na 3 GM in Sodium Chloride 0.9% 100 ML IV ONE (20:38)
== END 2023-11-22 22:10 ==
LOC: DL.ED 18:36
DX: K04.7 Periapical abscess without sinus (principal); E11.65 Type 2 diabetes mellitus with hyperglycemia; I10 Essential (primary) hypertension; E78.00 Pure hypercholesterolemia, unspecified; J45.909 Unspecified asthma, uncomplicated; E66.9 Obesity, unspecified; Z68.37 Body mass index [BMI] 37.0-37.9, adult; Z86.16 Personal history of COVID-19; Z90.49 Acquired absence of other specified parts of digestive tract; Z79.899 Other long term (current) drug therapy; Z79.82 Long term (current) use of aspirin; Z79.4 Long term (current) use of insulin; Z88.5 Allergy status to narcotic agent
CPT/HCPCS: 36415; 70487; 80053; 82009; 82947; 85025; 96361; 96365; 96375; 99285; J0295; J1815; J1885; J2270; J2405; J3490; J7030; Q9967

== ENCOUNTER 2024-03-16 04:57 | Day surgery (SDC) | payer MEDICAID, OTHER ==
[2024-03-16] MEDS: Dextrose 5%-0.45% NaCl 1,000 ML IV SCH (05:37)
[2024-03-16] MEDS ORDERED: fentaNYL 100 MCG/2 ML SDV IV ONE (06:08)
[2024-03-16] MEDS ORDERED: fentaNYL 100 MCG/2 ML SDV ONE (06:08)
[2024-03-16] MEDS ORDERED: Midazolam 1 MG/ML 2 ML SDV IV ONE (06:08)
[2024-03-16] MEDS ORDERED: Midazolam 1 MG/ML 2 ML SDV ONE (06:08)
[2024-03-16] MEDS: fentaNYL 100 MCG/2 ML SDV IV ONE ×2 (06:24→06:26)
[2024-03-16] MEDS: Midazolam 1 MG/ML 2 ML SDV IV ONE ×7 (06:26→06:47)
[2024-03-16 08:04] VITALS: BP 117/61; PULSE 76
== END 2024-03-16 08:12 | disposition home or self-care (01) ==
LOC: DL.ENDO 04:57
PROVIDERS: ATTEND Internal Medicine Gastroenterology
DX: Z12.11 Encounter for screening for malignant neoplasm of colon (principal); R19.5 Other fecal abnormalities; I10 Essential (primary) hypertension; E11.9 Type 2 diabetes mellitus without complications; E66.09 Other obesity due to excess calories; Z68.34 Body mass index [BMI] 34.0-34.9, adult
CPT/HCPCS: J2250; J3010; J7799

== ENCOUNTER 2024-06-14 16:50 | Emergency (ER) | payer OTHER ==
[2024-06-14] MEDS: Acetaminophen/HYDROcodone 325-5 MG Tab PO ONE (17:30)
[2024-06-14] MEDS: Ketorolac 30 MG/ML SDV IM ONE (17:30)
[2024-06-14] MEDS: Gabapentin 300 MG Cap PO ONE (17:44)
[2024-06-14 17:54] VITALS: BP 131/73; PULSE 86
== END 2024-06-14 17:52 | disposition home or self-care (01) ==
LOC: DL.ED 16:50
DX: E11.40 Type 2 diabetes mellitus with diabetic neuropathy, unspecified (principal); I10 Essential (primary) hypertension; J44.89 Other specified chronic obstructive pulmonary disease; E78.00 Pure hypercholesterolemia, unspecified; E66.9 Obesity, unspecified; E11.9 Type 2 diabetes mellitus without complications; Z88.1 Allergy status to other antibiotic agents; Z88.8 Allergy status to other drugs, medicaments and biological substances; Z79.82 Long term (current) use of aspirin; Z79.4 Long term (current) use of insulin; Z79.899 Other long term (current) drug therapy; Z90.49 Acquired absence of other specified parts of digestive tract
CPT/HCPCS: 96372; 99283; A9270; J1885

== ENCOUNTER 2024-10-09 15:15 | Emergency (ER) | payer MEDICAID ==
[~2024-10-09 15:15] MED LIST: Nitrofurantoin Monohydrate/Macrocrystalline 100 MG Cap ONE
[2024-10-09 16:01] LABS: BASOPHILS PERCENT AUTO 0.2 % (0.0-1.0); EOSINOPHILS PERCENT AUTO 3.4 % (1.0-3.0); LYMPHOCYTES PERCENT AUTO 28.1 % (20.5-50.1); MONOCYTES PERCENT AUTO 7.0 % (2-8); NEUTROPHILS PERCENT AUTO 61.3 % (42.2-75.2); PLATELET COUNT,PLT 325 10^3/uL (150-450); RED BLOOD CELL COUNT 3.94 10^6/uL (4.2-5.4); WHITE BLOOD CELL COUNT,WBC 13.3 10^3/uL (5.0-10.0)
[2024-10-09] MEDS: Sodium Chloride 0.9% 10 ML Syringe FLUSH PRN (16:06)
[2024-10-09 16:17] LABS: B-TYPE NATRIURETIC PEPTIDE,BNP 47 pg/ml (0-100)
[2024-10-09 16:20] LABS: INR 0.9 (0.9-1.2)
[2024-10-09 16:23] LABS: A/G RATIO 0.91; ALANINE AMINOTRANSFERASE,ALT 9 U/L (14-59); ASPARTATE AMNIOTRANSFERASE,AST 8 U/L (15-37); BILIRUBIN TOTAL 0.5 mg/dL (0.2-1.0); BLOOD UREA NITROGEN,BUN 21 mg/dL (7-18); CARBON DIOXIDE,CO2 24 mmol/L (21-32); CHLORIDE,CL 100 mmol/L (98-107); CREATININE 1.34 mg/dL (0.55-1.02); EST CRCL DRUG DOSING (CG) 45.60 mL/min; ESTIMATED GFR 46 mL/min (>=60); GLUCOSE RANDOM 359 mg/dL (70-99); POTASSIUM,K 4.6 mmol/L (3.5-5.1); PROTEIN TOTAL,TP 6.3 g/dL (6.4-8.2); SODIUM,NA 133 mmol/L (136-145)
[2024-10-09 16:24] LABS: LACTIC ACID 3.6 mmol/L (0.4-2.0)
[2024-10-09] MEDS: Iopamidol 612 MG/ML 100 ML Bottle IVPUSH ONE (16:26)
[2024-10-09 16:36] LABS: PTT,PARTIAL THROMBOPLSTIN TIME 24.5 SEC (22.0-34.0)
[2024-10-09 16:41] LABS: APPEARANCE,URINE CLEAR (CLEAR); GLUCOSE,URINE 250 (NEGATIVE); OCCULT BLOOD,URINE NEGATIVE (NEGATIVE)
[2024-10-09 16:47] LABS: AMPHETAMINES,URINE NEGATIVE (NEGATIVE); BARBITURATES,URINE NEGATIVE (NEGATIVE); MDMA (ECSTASY), URINE NEGATIVE (NEGATIVE); METHAMPHETAMINES,URINE NEGATIVE (NEGATIVE); OPIATES,URINE NEGATIVE (NEGATIVE); OXYCODONE,URINE NEGATIVE (NEGATIVE); PHENCYCLIDINE,URINE NEGATIVE (NEGATIVE); TCA,URINE NEGATIVE (NEGATIVE)
[2024-10-09] MEDS: Magnesium Sulfate 2 GM/50 mL 2 GM in Premix Bag 1 BAG IV ONE (16:54)
[2024-10-09 16:59] LABS: EPITHELIAL CELLS,URINE MODERATE /HPF (NOT SEEN)
[2024-10-09] MEDS: Nitrofurantoin Monohydrate/Macrocrystalline 100 MG Cap PO ONE (17:57)
[2024-10-09 18:31] LABS: BASOPHILS PERCENT AUTO 0.3 % (0.0-1.0); EOSINOPHILS PERCENT AUTO 3.7 % (1.0-3.0); LYMPHOCYTES PERCENT AUTO 31.6 % (20.5-50.1); MONOCYTES PERCENT AUTO 7.6 % (2-8); NEUTROPHILS PERCENT AUTO 56.8 % (42.2-75.2); PLATELET COUNT,PLT 310 10^3/uL (150-450); RED BLOOD CELL COUNT 3.96 10^6/uL (4.2-5.4); WHITE BLOOD CELL COUNT,WBC 13.4 10^3/uL (5.0-10.0)
[2024-10-09 18:45] LABS: A/G RATIO 0.88; ALANINE AMINOTRANSFERASE,ALT 8.0 U/L (14-59); ASPARTATE AMNIOTRANSFERASE,AST 8.0 U/L (15-37); BILIRUBIN TOTAL 0.5 mg/dL (0.2-1.0); BLOOD UREA NITROGEN,BUN 19.0 mg/dL (7-18); CARBON DIOXIDE,CO2 26.0 mmol/L (21-32); CHLORIDE,CL 101.0 mmol/L (98-107); CREATININE 1.12 mg/dL (0.55-1.02); EST CRCL DRUG DOSING (CG) 54.56 mL/min; ESTIMATED GFR 57.0 mL/min (>=60); GLUCOSE RANDOM 327.0 mg/dL (70-99); POTASSIUM,K 4.9 mmol/L (3.5-5.1); PROTEIN TOTAL,TP 6.2 g/dL (6.4-8.2); SODIUM,NA 133.0 mmol/L (136-145)
[2024-10-09] MEDS: Take Home: Nitrofurantoin Monohydrate/Macrocrystalline 100 MG, 6 Cap Pack PO ONE (19:16)
[2024-10-09 19:28] VITALS: BP 123/74; PULSE 64
== END 2024-10-09 19:24 | disposition home or self-care (01) ==
LOC: DL.ED 15:15
DX: E86.0 Dehydration (principal); N39.0 Urinary tract infection, site not specified; N17.9 Acute kidney failure, unspecified; E86.1 Hypovolemia; I95.9 Hypotension, unspecified; I10 Essential (primary) hypertension; E78.00 Pure hypercholesterolemia, unspecified; K21.9 Gastro-esophageal reflux disease without esophagitis; E11.9 Type 2 diabetes mellitus without complications; J44.89 Other specified chronic obstructive pulmonary disease; Z88.1 Allergy status to other antibiotic agents; Z79.4 Long term (current) use of insulin; Z79.899 Other long term (current) drug therapy; Z79.82 Long term (current) use of aspirin; Z79.51 Long term (current) use of inhaled steroids; Z86.73 Personal history of transient ischemic attack (TIA), and cerebral infarction without residual deficits
CPT/HCPCS: 36415; 71045; 71260; 74177; 80053; 80305-QW; 81001; 82947; 83605; 83735; 83880; 84484; 85025; 85610; 85730; 86140; 87040; 87077; 87086; 93005; 93010; 96361; 96365; 96366; 99284; 99285-25; A9270-GY; J3475; J7030; J7040; Q9967